=== PATIENT | female | born 1970 | race Caucasian/White ===

== ENCOUNTER 2017-01-14 15:46 | Inpatient (IN) | payer OTHER ==
[2017-01-14] MEDS ORDERED: SODIUM CHLORIDE 0.9% 500 ML IV STA ×2 (17:06→17:45)
[2017-01-14] MEDS ORDERED: HYDROmorphone 0.5 MG/0.5 ML SYRINGE IM STA (17:22)
[2017-01-14 17:27] LABS: Basophils # (A) 0.1 k/uL (0-0.2); Basophils % (A) 1 %; CH 28.9; CHCM 32.4; Eosinophils # (A) 0.2 k/uL (0-0.7); Eosinophils % (A) 1 %; HCT 45.7 % (34.0-46.0); HDW 2.42; HGB 14.9 gm/dL (11.4-16.0); Luc # (Auto) 0.14; Luc % (Auto) 1; Lymphocytes # (A) 1.7 k/uL (1.0-4.8); Lymphocytes % (A) 12 %; MCH 29.2 pg (25.0-35.0); MCHC 32.6 g/dL (31.0-37.0); MCV 89.5 fL (80.0-100.0); Mean Platelet Volume 8.1; Monocytes # (A) 0.6 k/uL (0-1.0); Monocytes % (A) 4 %; Neutrophils # (A) 11.7 k/uL (1.3-7.7); Neutrophils % (A) 81 %; RBC 5.11 m/uL (3.80-5.40); RDW 14.2 % (11.5-15.5); WBC 14.5 k/uL (3.8-10.6)
[2017-01-14] MEDS ORDERED: HYDROmorphone 0.5 MG/0.5 ML SYRINGE IVP STA (17:27)
[2017-01-14 17:35] LABS: INR 0.9 (<1.2); Partial Thromboplastin Time 27.7 sec (22.0-30.0); Prothrombin Time 9.5 sec (9.0-12.0)
[2017-01-14 17:43] LABS: Anion Gap 13 mmol/L; Blood Urea Nitrogen 6 mg/dL (7-17); Calcium 10.2 mg/dL (8.4-10.2); Carbon Dioxide 24 mmol/L (22-30); Chloride 102 mmol/L (98-107); Glucose 95 mg/dL (74-99); Non-African American GFR(MDRD) >60 (>60 ml/min/1.73 sqM); Potassium 3.8 mmol/L (3.5-5.1); Sodium 139 mmol/L (137-145)
[2017-01-14] MEDS ORDERED: SODIUM CHLORIDE 0.9% 1,000 ML IV ONE (17:45)
[2017-01-14] MEDS ORDERED: HYDROmorphone 1 MG/ML 1 ML SYRINGE IVP STA (18:03)
--- NOTE | 2017-01-14 18:16 | CT ---
EXAMINATION TYPE: CT abdomen pelvis wo con DATE OF EXAM: 01/14/2017 COMPARISON: Previous study dated 06/30/2013 HISTORY: Abdominal pain, possible ventral hernia CT DLP: 594.1 mGycm Automated exposure control for dose reduction was used. FINDINGS: There is mild, dependent atelectasis in the dependent portions of the lungs. There is no pl eural or pericardial fluid. The heart is not enlarged. Within the abdomen, the liver is enlarged measuring 20 cm. The spleen is normal. The gallbladder has been removed. Both adrenal glands are normal. Limited views of the pancreas are unremarkable. There is no evidence of hydronephrosis or nephrolithiasis. There is no significant retroperitoneal, iliac or inguinal adenopathy. The bladder is unremarkable. The uterus is normal. The ovaries are not identified with certainty. There is no significant diverticular change and there is no radiographic evidence of diverticulitis. The appendix is not visualized. Small bowel caliber is normal. There is no free fluid and no free air. There is a ventral hernia containing fat. The mouth measures 3.2 cm. There is mild facet arthropathy at the L5-S1 level. No bony destructive lesion is seen. IMPRESSION: 1. HEPATOMEGALY. 2. VENTRAL HERNIA CONTAINING FAT WITH A MOUTH MEASURING 3.2 CM.
[2017-01-14] MEDS ORDERED: NALOXONE 0.4 MG/ML 1 ML VIAL IV PRN (19:38)
--- NOTE | 2017-01-14 19:46 | XR ---
EXAMINATION TYPE: XR chest 2V DATE OF EXAM: 01/14/2017 HISTORY: fever. REFERENCE: Previous study dated 05/12/2013.. FINDINGS: There is an early infiltrate in the left lower lobe. The lungs are otherwise clear. Pleural space are clear. The heart is not enlarged. IMPRESSION: FINDINGS CONSISTENT WITH EARLY LEFT LOWER LOBE PNEUMONIA.
[2017-01-14] MEDS ORDERED: HYDROmorphone 1 MG/ML 1 ML SYRINGE IVP PRN (19:53)
[2017-01-14] MEDS ORDERED: HYDROcodone/APAP 10-325MG 1 EACH TAB PO PRN (19:54)
[2017-01-14] MEDS ORDERED: LOPERAMIDE 2 MG CAP PO PRN (19:54)
--- NOTE | 2017-01-14 19:55 | ED ---
Abdominal Pain HPI - General Chief Complaint: Abdominal Pain Stated Complaint: abdominal pain, poss sepsis, ventral hernia Time Seen by Provider: 01/14/17 16:30 Source: patient Mode of arrival: ambulatory Limitations: no limitations - History of Present Illness Initial Comments: 46-year-old female with past medical history of asthma, hypertension, osteoarthritis, Crohn's disease, appendectomy, bowel resection, cholecystectomy , hernia repair presented for evaluation of sudden onset abdominal pain yesterday. 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 She was pushing and exceptionally heavy object that was on the left and states that she felt a pull in her abdomen and a sudden onset of pain. She states that the pain and sensation is similar to previous ventral hernias which she has previously had prepared. She tried to deal with the pain overnight however it continued throughout the day and she presents for this abdominal pain. She also states that she has felt febrile during this time. Given her history of Crohn's disease she is used to having chronic abdominal pain but she states that this is different. - Related Data Home Medications Medication Instructions Recorded Confirmed ALPRAZolam [Xanax] 1 mg PO BID 10/15/15 01/14/17 HYDROcodone/APAP 10-325MG [[place] 1 tab PO BID PRN 10/15/15 01/14/17 10-325] Metoprolol Tartrate [Lopressor] 25 mg PO BID 10/15/15 01/14/17 Sertraline [Zoloft] 100 mg PO BID 10/15/15 01/14/17 cloNIDine HCL 0.3 mg PO HS 10/15/15 01/14/17 Adalimumab [Humira Pen] 40 mg SQ [id number] 01/14/17 01/14/17 Hydrochlorothiazide [Hydrodiuril] 25 mg PO DAILY 01/14/17 01/14/17 Loperamide HCl [Imodium A-D] 4 mg PO TID PRN 01/14/17 01/14/17 Loratadine [Claritin] 10 mg PO DAILY 01/14/17 01/14/17 Allergies Allergy/AdvReac Type Severity Reaction Status Date / Time iodine Allergy Anaphylaxis Verified 01/14/17 16:33 morphine Allergy Anaphylaxis Verified 01/14/17 16:33 ciprofloxacin [From Cipro] AdvReac Itching Verified 11/16/17 16:33 ciprofloxacin HCl AdvReac Itching Verified 01/14/17 16:33 [From Cipro] levofloxacin [From Levaquin] AdvReac Itching Verified 01/14/17 16:33 Review of Systems ROS Statement: Those systems with pertinent positive or pertinent negative responses have been documented in the HPI. ROS Other: All systems not noted in ROS Statement are negative. Constitutional: Reports: fever, chills. Denies: weight change, night sweats Eyes: Denies: eye pain, vision change ENT: Denies: ear pain, throat pain Respiratory: Denies: cough, dyspnea Cardiovascular: Denies: chest pain, palpitations Endocrine: Denies: fatigue, polydipsia, polyuria Gastrointestinal: Reports: abdominal pain, nausea. Denies: vomiting, diarrhea, constipation, hematemesis, melena, hematochezia Genitourinary: Denies: urgency, dysuria Musculoskeletal: Denies: back pain, arthralgia, myalgia Skin: Denies: rash, lesions Neurological: Denies: headache, weakness Psychiatric: Denies: anxiety, depression Hematological/Lymphatic: Denies: easy bleeding, easy bruising Past Medical History Past Medical History: Asthma, Hypertension, Osteoarthritis (OA) Additional Past Medical History / Comment(s): Chron's History of Any Multi-Drug Resistant Organisms: None Reported Past Surgical History: Appendectomy, Bowel Resection, Cholecystectomy, Hernia Repair, Orthopedic Surgery Additional Past Surgical History / Comment(s): Colonoscopy Past Anesthesia/Blood Transfusion Reactions: No Reported Reaction Past Psychological History: Depression Smoking Status: Current every day smoker Past Alcohol Use History: Rare Past Drug Use History: None Reported - Past Family History Father Family Medical History: Cancer Mother Family Medical History: Cancer General Exam Limitations: no limitations General appearance: alert, in distress, obese Head exam: Present: atraumatic, normocephalic, normal inspection Eye exam: Present: normal appearance, PERRL, EOMI. Absent: scleral icterus, conjunctival injection, periorbital swelling ENT exam: Present: normal exam, mucous membranes moist Neck exam: Present: normal inspection. Absent: tenderness, meningismus, lymphadenopathy Respiratory exam: Present: normal lung sounds bilaterally. Absent: respiratory distress, wheezes, rales, rhonchi, stridor Cardiovascular Exam: Present: normal rhythm, tachycardia GI/Abdominal exam: Present: soft, tenderness, hernia (Ventral supra-umbilical). Absent: distended, guarding, rebound, rigid Rectal exam: Present: deferred Extremities exam: Present: normal inspection, full ROM, normal capillary refill. Absent: tenderness, pedal edema, joint swelling, calf tenderness Back exam: Present: normal inspection Neurological exam: Present: alert, oriented X3, CN II-XII intact Psychiatric exam: Present: normal affect, normal mood Skin exam: Present: warm, dry, intact, normal color. Absent: rash Course Vital Signs 01/14/17 01/14/17 01/14/17 15:55 16:57 18:17 Temperature 98.4 F 101 F H Pulse Rate 126 H 118 H 109 H Respiratory 22 16 16 Rate Blood Pressure 147/84 162/118 143/83 O2 Sat by Pulse 98 97 95 Oximetry 01/14/17 20:28 Temperature 99.5 F Pulse Rate 111 H Respiratory 18 Rate Blood Pressure 146/90 O2 Sat by Pulse 95 Oximetry Medical Decision Making - Medical Decision Making 46-year-old female with past medical history as noted above presented for evaluation of sudden onset abdominal pain yesterday while moving a heavy object. She states the symptoms are similar to previous ventral hernias. On physical examination the patient is markedly tachycardic with heart rates in the 120s. She is also febrile and appears to be in distress holding her abdomen. On palpation abdomen is soft however there is a ventral defect superior to her umbilicus that is reducible. Abdomen is non-peritoneal without signs of guarding, rigidity, or rebound. The remainder of her exam is benign. Although the ventral hernia is reducible, there is concern for other etiology as she is markedly tachycardic and febrile which may indicate intra-abdominal perforation or other infectious etiology. We'll obtain CT abdomen and pelvis without contrast given the patient has an ALLERGY, labs, and provide pain control and IV fluids. Labs revealed a leukocytosis and lactic acidosis and IV fluids were increased. Patient was reevaluated and had no improvement in her pain and it was discovered that she has a pain contract with high tolerance for pain medications. We'll provide another dose of pain control at an increased dose.CT abdomen and pelvis showed hepatomegaly and a ventral hernia containing fat with a mild measuring 3.2 cm. Given that there is no significant intra- abdominal etiology we'll obtain a chest x-ray and urinalysis for further infectious etiology. Chest x-ray showed findings consistent with early left lower lobe pneumonia patient was started on antibiotics. Urinalysis shows no UTI. Discussed the pt with Dr. Geller who accepted the admission without further request. Admission order placed and bed request submitted. - Lab Data Result diagrams: 01/14/17 17:10 01/14/17 17:10 Lab Results 01/14/17 01/14/17 01/14/17 Range/Units 17:10 17:10 17:10 WBC 14.5 H (3.8-10.6) k/uL RBC 5.11 (3.80-5.40) m/uL Hgb 14.9 (11.4-16.0) gm/dL Hct 45.7 (34.0-46.0) % MCV 89.5 (80.0-100.0) fL MCH 29.2 (25.0-35.0) pg MCHC 32.6 (31.0-37.0) g/dL RDW 14.2 (11.5-15.5) % Plt Count 282 (150-450) k/uL Neutrophils % 81 % Lymphocytes % 12 % Monocytes % 4 % Eosinophils % 1 % Basophils % 1 % Neutrophils # 11.7 H (1.3-7.7) k/uL Lymphocytes # 1.7 (1.0-4.8) k/uL Monocytes # 0.6 (0-1.0) k/uL Eosinophils # 0.2 (0-0.7) k/uL Basophils # 0.1 (0-0.2) k/uL PT (9.0-12.0) sec INR (<1.2) APTT (22.0-30.0) sec Sodium 139 (137-145) mmol/L Potassium 3.8 (3.5-5.1) mmol/L Chloride 102 (98-107) mmol/L Carbon Dioxide 24 (22-30) mmol/L Anion Gap 13 mmol/L BUN 6 L (7-17) mg/dL Creatinine 0.60 (0.52-1.04) mg/dL Est GFR (MDRD) Af Amer >60 (>60 ml/min/1.73 sqM) Est GFR (MDRD) Non-Af >60 (>60 ml/min/1.73 sqM) Glucose 95 (74-99) mg/dL Lactic Ac Sepsis Rflx Plasma Lactic Acid [place] 2.9 H* (0.7-2.0) mmol/L Calcium 10.2 (8.4-10.2) mg/dL Urine Color Urine Appearance (Clear) Urine pH (5.0-8.0) Ur Specific [place] (1.001-1.035) Urine Protein (Negative) Urine Glucose (UA) (Negative) Urine Ketones (Negative) Urine Blood (Negative) Urine Nitrite (Negative) Urine Bilirubin (Negative) Urine Urobilinogen (<2.0) mg/dL Ur Leukocyte Esterase (Negative) 01/14/17 01/14/17 01/14/17 Range/Units 17:10 17:44 19:15 WBC (3.8-10.6) k/uL RBC (3.80-5.40) m/uL Hgb (11.4-16.0) gm/dL Hct (34.0-46.0) % MCV (80.0-100.0) fL MCH (25.0-35.0) pg MCHC (31.0-37.0) g/dL RDW (11.5-15.5) % Plt Count (150-450) k/uL Neutrophils % % Lymphocytes % % Monocytes % % Eosinophils % % Basophils % % Neutrophils # (1.3-7.7) k/uL Lymphocytes # (1.0-4.8) k/uL Monocytes # (0-1.0) k/uL Eosinophils # (0-0.7) k/uL Basophils # (0-0.2) k/uL PT 9.5 (9.0-12.0) sec INR 0.9 (<1.2) APTT 27.7 (22.0-30.0) sec Sodium (137-145) mmol/L Potassium (3.5-5.1) mmol/L Chloride (98-107) mmol/L Carbon Dioxide (22-30) mmol/L Anion Gap mmol/L BUN (7-17) mg/dL Creatinine (0.52-1.04) mg/dL Est GFR (MDRD) Af Amer (>60 ml/min/1.73 sqM) Est GFR (MDRD) Non-Af (>60 ml/min/1.73 sqM) Glucose (74-99) mg/dL Lactic Ac Sepsis Rflx Y Plasma Lactic Acid Julian (0.7-2.0) mmol/L Calcium (8.4-10.2) mg/dL Urine Color Light Yellow Urine Appearance Clear (Clear) Urine pH 7.0 (5.0-8.0) Ur Specific [place] 1.005 (1.001-1.035) Urine Protein Negative (Negative) Urine Glucose (UA) Negative (Negative) Urine Ketones Negative (Negative) Urine Blood Negative (Negative) Urine Nitrite Negative (Negative) Urine Bilirubin Negative (Negative) Urine Urobilinogen <2.0 (<2.0) mg/dL Ur Leukocyte Esterase Negative (Negative) 01/14/17 20:09 Sinus tachycardia with a ventricular rate of 114, CECIL 138, QRS 82, QT/QTC 338/ 465. Disposition Clinical Impression: Intractable abdominal pain, Ventral hernia, CAP (community acquired pneumonia) Disposition: ADMITTED IP TO THIS [facility] Time of Disposition: 21:47 Decision to Admit Reason: Admit from EC Decision Date: 01/14/17 Decision Time: 19:55
[2017-01-14 20:06] LABS: Appearance,Urine Clear (Clear); Bilirubin,Urine Negative (Negative); Glucose,Urine (UA) Negative (Negative); Ketones,Urine Negative (Negative); Leukocyte Esterase,Urine Negative (Negative); Nitrite,Urine Negative (Negative); Protein,Urine Negative (Negative); Specific Gravity,Urine 1.005 (1.001-1.035); UA Billing (MACRO vs. MICRO) CHEM; Urobilinogen,Urine <2.0 mg/dL (<2.0)
[2017-01-14] MEDS ORDERED: ACETAMINOPHEN TAB 325 MG TAB PO STA (20:15)
[2017-01-14] MEDS: SODIUM CHLORIDE 0.9% 1,000 ML IV SCH (20:23)
[2017-01-14] MEDS ORDERED: AZITHROMYCIN 500 MG TAB PO STA (20:39)
[2017-01-14] MEDS ORDERED: cefTRIAXone IN SWFI 1,000 MG/10 ML SYRINGE IVP STA (20:42)
[2017-01-14 21:04] VITALS: BMI 26.7
[2017-01-14] MEDS: ALPRAZolam 0.5 MG TAB PO SCH (21:37)
[2017-01-14] MEDS: SERTRALINE 100 MG TAB PO SCH (21:38)
[2017-01-14] MEDS: cloNIDine HCL 0.1 MG TAB PO SCH (21:38)
[2017-01-14] MEDS: METOPROLOL TARTRATE 25 MG TAB PO SCH (21:38)
[2017-01-14] MEDS: HYDROmorphone 2 MG/ML 1 ML SYRINGE IVP PRN (21:50)
[2017-01-15] MEDS: HYDROmorphone 2 MG/ML 1 ML SYRINGE IVP PRN ×6 (01:11→22:21)
[2017-01-15] MEDS: SODIUM CHLORIDE 0.9% 1,000 ML IV SCH ×3 (04:38→18:43)
[2017-01-15 07:02] LABS: Basophils # (A) 0.1 k/uL (0-0.2); Basophils % (A) 2 %; CH 29.1; CHCM 31.3; Eosinophils # (A) 0.2 k/uL (0-0.7); Eosinophils % (A) 3 %; HDW 2.38; HGB 12.9 gm/dL (11.4-16.0); Luc # (Auto) 0.15; Luc % (Auto) 2; Lymphocytes # (A) 2.3 k/uL (1.0-4.8); Lymphocytes % (A) 37 %; MCH 30.2 pg (25.0-35.0); MCHC 32.3 g/dL (31.0-37.0); MCV 93.5 fL (80.0-100.0); Mean Platelet Volume 7.9; Monocytes # (A) 0.4 k/uL (0-1.0); Monocytes % (A) 7 %; Neutrophils # (A) 2.9 k/uL (1.3-7.7); Neutrophils % (A) 49 %; RBC 4.27 m/uL (3.80-5.40); RDW 14.2 % (11.5-15.5); WBC (Perox) 6.38
[2017-01-15 07:21] LABS: Anion Gap 7 mmol/L; Blood Urea Nitrogen 7 mg/dL (7-17); Calcium 8.9 mg/dL (8.4-10.2); Carbon Dioxide 24 mmol/L (22-30); Chloride 110 mmol/L (98-107); Glucose 88 mg/dL (74-99); Non-African American GFR(MDRD) >60 (>60 ml/min/1.73 sqM); Potassium 4.2 mmol/L (3.5-5.1); Sodium 141 mmol/L (137-145)
[2017-01-15] MEDS: METOPROLOL TARTRATE 25 MG TAB PO SCH ×2 (10:13→22:23)
--- NOTE | 2017-01-15 10:33 | P.GSCN ---
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 Patient was pushing a heavy cart when she felt a significant pain in her abdomen. She developed a new mass. The patient was seen emergency room and underwent CAT scan is found have incarcerated incisional hernia with a piece of incarcerated omentum/fat. The patient states she has significant pain in the area. However the pain is better than yesterday. The patient is a previous history of bowel resection secondary to Crohn's disease. Past Medical History Past Medical History: Asthma, Hypertension, Osteoarthritis (OA) Additional Past Medical History / Comment(s): Chron's History of Any Multi-Drug Resistant Organisms: None Reported Past Surgical History: Appendectomy, Bowel Resection, Cholecystectomy, Hernia Repair, Orthopedic Surgery Additional Past Surgical History / Comment(s): Colonoscopy Past Anesthesia/Blood Transfusion Reactions: No Reported Reaction Past Psychological History: Depression Smoking Status: Current every day smoker Past Alcohol Use History: Rare Past Drug Use History: None Reported - Past Family History Father Family Medical History: Cancer Mother Family Medical History: Cancer Medications and Allergies Home Medications Medication Instructions Recorded Confirmed Type ALPRAZolam [Xanax] 1 mg PO BID 10/15/15 01/14/17 History HYDROcodone/APAP 10-325MG [[place] 1 tab PO BID PRN 10/15/15 01/14/17 History 10-325] Metoprolol Tartrate [Lopressor] 25 mg PO BID 10/15/15 01/14/17 History Sertraline [Zoloft] 100 mg PO BID 10/15/15 01/14/17 History cloNIDine HCL 0.3 mg PO HS 10/15/15 01/14/17 History Adalimumab [Humira Pen] 40 mg SQ [id number] 01/14/17 01/14/17 History Hydrochlorothiazide [Hydrodiuril] 25 mg PO DAILY 01/14/17 01/14/17 History Loperamide HCl [Imodium A-D] 4 mg PO TID PRN 01/14/17 01/14/17 History Loratadine [Claritin] 10 mg PO DAILY 01/14/17 01/14/17 History Allergies Allergy/AdvReac Type Severity Reaction Status Date / Time iodine Allergy Anaphylaxis Verified 01/14/17 16:33 morphine Allergy Anaphylaxis Verified 01/14/17 16:33 ciprofloxacin [From Cipro] AdvReac Itching Verified 01/14/17 16:33 ciprofloxacin HCl AdvReac Itching Verified 01/14/17 16:33 [From Cipro] levofloxacin [From Levaquin] AdvReac Itching Verified 01/14/17 16:33 Surgical - Exam Vital Signs Temp Pulse Resp BP Pulse Ox 98.4 F 126 H 22 147/84 98 01/14/17 15:55 01/14/17 15:55 01/14/17 15:55 01/14/17 15:55 01/14/17 15:55 - General well developed, no distress - Eyes PERRL - ENT normal pinna - Neck no masses - Respiratory normal expansion - Cardiovascular Rhythm: regular - Abdomen Abdomen soft. There is previous low midline laparotomy with evidence of infection there is a transverse right-sided incision extending towards the umbilicus. In the medial portion of the incision there is a small incarcerated hernia. The hernia is mildly tender. It appears to contain omentum. Abdomen: soft Results - Labs 01/15/17 06:36 01/15/17 06:36 Abnormal Lab Results - Last 24 Hours (Table) 01/14/17 01/14/17 01/14/17 Range/Units 17:10 17:10 17:10 WBC 14.5 H (3.8-10.6) k/uL Neutrophils # 11.7 H (1.3-7.7) k/uL Chloride (98-107) mmol/L BUN 6 L (7-17) mg/dL Plasma Lactic Acid [place] 2.9 H* (0.7-2.0) mmol/L 01/14/17 01/15/17 Range/Units 20:58 06:36 WBC (3.8-10.6) k/uL Neutrophils # (1.3-7.7) k/uL Chloride 110 H (98-107) mmol/L BUN (7-17) mg/dL Plasma Lactic Acid [place] 2.5 H* (0.7-2.0) mmol/L Diabetes panel 01/14/17 01/15/17 Range/Units 17:10 06:36 Sodium 139 141 (137-145) mmol/L Potassium 3.8 4.2 (3.5-5.1) mmol/L Chloride 102 110 H (98-107) mmol/L Carbon Dioxide 24 24 (22-30) mmol/L BUN 6 L 7 (7-17) mg/dL Creatinine 0.60 0.54 (0.52-1.04) mg/dL Glucose 95 88 (74-99) mg/dL Calcium 10.2 8.9 (8.4-10.2) mg/dL Calcium panel 01/14/17 01/15/17 Range/Units 17:10 06:36 Calcium 10.2 8.9 (8.4-10.2) mg/dL Pituitary panel 01/14/17 01/15/17 Range/Units 17:10 06:36 Sodium 139 141 (137-145) mmol/L Potassium 3.8 4.2 (3.5-5.1) mmol/L Chloride 102 110 H (98-107) mmol/L Carbon Dioxide 24 24 (22-30) mmol/L BUN 6 L 7 (7-17) mg/dL Creatinine 0.60 0.54 (0.52-1.04) mg/dL Glucose 95 88 (74-99) mg/dL Calcium 10.2 8.9 (8.4-10.2) mg/dL Adrenal panel 01/14/17 01/15/17 Range/Units 17:10 06:36 Sodium 139 141 (137-145) mmol/L Potassium 3.8 4.2 (3.5-5.1) mmol/L Chloride 102 110 H (98-107) mmol/L Carbon Dioxide 24 24 (22-30) mmol/L BUN 6 L 7 (7-17) mg/dL Creatinine 0.60 0.54 (0.52-1.04) mg/dL Glucose 95 88 (74-99) mg/dL Calcium 10.2 8.9 (8.4-10.2) mg/dL - Imaging CT scan - abdomen: report reviewed (3.2 cm ventral hernia) Assessment and Plan Assessment: Incarcerated incisional hernia. Patient will undergo repair.
[2017-01-15] MEDS: LORATADINE 10 MG TAB PO SCH (11:21)
[2017-01-15] MEDS: SERTRALINE 100 MG TAB PO SCH ×2 (11:21→22:23)
[2017-01-15] MEDS: HYDROCHLOROTHIAZIDE 25 MG TAB PO SCH (11:21)
[2017-01-15] MEDS: ALPRAZolam 0.5 MG TAB PO SCH ×2 (11:21→22:22)
[2017-01-15] MEDS ORDERED: IV FLUID CONTINUATION 1,000 ML IV ONE (14:28)
[2017-01-15] MEDS ORDERED: ceFAZolin IN SWFI 2 GM/20 ML SYRINGE IVP STA (14:33)
[2017-01-15] MEDS ORDERED: HEPARIN SODIUM,PORCINE 5,000 UNIT/ML 1 ML VIAL SQ STA (14:34)
--- NOTE | 2017-01-15 14:35 | P.HPIM ---
History of Present Illness H&P Date: 01/15/17 Chief Complaint: abdominal pain This is a 46-year-old female patient of Dr. Patel with a past medical history of asthma, hypertension, osteoarthritis, Crohn's disease status post 20+ inches of bowel resected [address] Whalen. 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 She came into [facility] emergency center for evaluation. She underwent a CAT scan that revealed hepatomegaly and ventral hernia containing fat measuring 3.2 cm. Patient also underwent a chest x-ray that did show early left lower lobe congestion for which she was given a dose of azithromycin and Rocephin. Patient was placed on the Medr floor and consult placed with Dr. Schultz who is planning on cholecystectomy as an add on to the OR schedule. Patient states her abdomen is sore and at the worst it's a #6-7 out of 10 and at the best #3 after pain medications. She states she's had Crohn's disease and underwent a bowel resection of 20+ inches with Dr. Whalen 2 years ago. She has been on Humira since May of this year and feels this is helping her. She chronically has diarrhea for short gut syndrome. Review of Systems All systems: negative Constitutional: Denies chills, Denies fever Eyes: denies blurred vision, denies pain Ears, nose, mouth and throat: Denies headache, Denies sore throat Cardiovascular: Denies chest pain, Denies shortness of breath Respiratory: Reports cough Gastrointestinal: Reports abdominal pain, Reports diarrhea, Denies nausea, Denies vomiting Genitourinary: Denies dysuria, Denies hematuria Musculoskeletal: Denies myalgias Integumentary: Denies pruritus, Denies rash Neurological: Denies numbness, Denies weakness Psychiatric: Denies anxiety, Denies depression Endocrine: Denies fatigue, Denies weight change Past Medical History Past Medical History: Asthma, Hypertension, Osteoarthritis (OA) Additional Past Medical History / Comment(s): Crohn's disease History of Any Multi-Drug Resistant Organisms: None Reported Past Surgical History: Appendectomy, Bowel Resection, Cholecystectomy, Hernia Repair, Orthopedic Surgery Additional Past Surgical History / Comment(s): Colonoscopy, right bunionectomy and hammertoe correction, kidney cyst removed in the renal aneurysm fixed at 17 years of age. Hernia repair including inguinal and umbilical Past Anesthesia/Blood Transfusion Reactions: No Reported Reaction Past Psychological History: Depression Smoking Status: Current every day smoker Past Alcohol Use History: Rare Additional Past Alcohol Use History / Comment(s): patient is a smoker one pack per day for 30 years. She denies any medical marijuana, marijuana, street drug use. She drinks alcohol rarely. Past Drug Use History: None Reported - Past Family History Father Family Medical History: Cancer Additional Family Medical History / Comment(s): Father is alive at age 70 with history of skin cancer, osteoarthritis and alcohol abuse. Mother Family Medical History: Cancer Additional Family Medical History / Comment(s): Mother is alive at age 67 with history of breast cancer, factor V, CVA. Brother(s) Additional Family Medical History / Comment(s): Patient has one brother with history of skin cancer, bipolar and alcohol abuse. Patient does not have any sisters. Patient had 3 children and one at 12 weeks of age. 2 daughters have no major medical problems. Medications and Allergies Home Medications Medication Instructions Recorded Confirmed Type ALPRAZolam [Xanax] 1 mg PO BID 10/15/15 01/14/17 History HYDROcodone/APAP 10-325MG [[place] 1 tab PO BID PRN 10/15/15 01/14/17 History 10-325] Metoprolol Tartrate [Lopressor] 25 mg PO BID 10/15/15 01/14/17 History Sertraline [Zoloft] 100 mg PO BID 10/15/15 01/14/17 History cloNIDine HCL 0.3 mg PO HS 10/15/15 01/14/17 History Adalimumab [Humira Pen] 40 mg SQ [id number] 01/14/17 01/14/17 History Hydrochlorothiazide [Hydrodiuril] 25 mg PO DAILY 01/14/17 01/14/17 History Loperamide HCl [Imodium A-D] 4 mg PO TID PRN 01/14/17 01/14/17 History Loratadine [Claritin] 10 mg PO DAILY 01/14/17 01/14/17 History Allergies Allergy/AdvReac Type Severity Reaction Status Date / Time iodine Allergy Anaphylaxis Verified 01/14/17 16:33 morphine Allergy Anaphylaxis Verified 01/14/17 16:33 ciprofloxacin [From Cipro] AdvReac Itching Verified 01/14/17 16:33 ciprofloxacin HCl AdvReac Itching Verified 01/14/17 16:33 [From Cipro] levofloxacin [From Levaquin] AdvReac Itching Verified 01/14/17 16:33 Physical Exam Vitals: Vital Signs Temp Pulse Pulse Resp BP BP BP 01/15/17 08:14 110/64 01/15/17 07:16 98.2 F 78 17 97/63 01/15/17 01:02 98.7 F 77 16 103/70 01/14/17 21:11 111 H 134/89 01/14/17 20:28 99.5 F 111 H 18 146/90 01/14/17 18:17 109 H 16 143/83 01/14/17 16:57 101 F H 118 H 16 162/118 01/14/17 15:55 98.4 F 126 H 22 147/84 Pulse Ox 01/15/17 08:14 01/15/17 07:16 92 L 01/15/17 01:02 95 01/14/17 21:11 01/14/17 20:28 95 01/14/17 18:17 95 01/14/17 16:57 97 01/14/17 15:55 98 Intake and Output 01/14/17 01/15/17 01/15/17 22:59 06:59 14:59 Intake Total 250 875 Balance 250 875 Intake: Intake, IV Titration 250 875 Amount Sodium Chloride 0.9% 1, 250 875 000 ml @ 125 mls/hr IV . Q8H [facility] Rx#:[id number] Other: Voiding Method Toilet Toilet # Voids 2 2 1 Weight 77.564 kg Gen: This is a obese 46-year-old female. She is resting bed appears to be comfortable. HEENT: Head is atraumatic, normocephalic. Pupils equal, round. Sclerae is anicteric. NECK: Supple. No JVD. No lymphadenopathy. No thyromegaly. LUNGS: Clear to auscultation. No wheezes or rhonchi. No intercostal retractions. HEART: Regular rate and rhythm. No murmur. ABDOMEN: Soft. Bowel sounds are present. No masses. Generalized tenderness.small hernia in the previous umbilical repair area. Patient has multiple scars on her abdomen from previous surgeries. EXTREMITIES: No pedal edema. No calf tenderness. NEUROLOGICAL: Patient is awake, alert and oriented x3. Cranial nerves 2 through 12 are grossly intact. Results CBC & Chem 7: 01/15/17 06:36 01/15/17 06:36 Labs: Abnormal Lab Results - Last 24 Hours (Table) 01/14/17 01/14/17 01/14/17 Range/Units 17:10 17:10 17:10 WBC 14.5 H (3.8-10.6) k/uL Neutrophils # 11.7 H (1.3-7.7) k/uL Chloride (98-107) mmol/L BUN 6 L (7-17) mg/dL Plasma Lactic Acid Julian 2.9 H* (0.7-2.0) mmol/L 01/14/17 01/15/17 Range/Units 20:58 06:36 WBC (3.8-10.6) k/uL Neutrophils # (1.3-7.7) k/uL Chloride 110 H (98-107) mmol/L BUN (7-17) mg/dL Plasma Lactic Acid Julian 2.5 H* (0.7-2.0) mmol/L Thrombosis Risk Factor Assmnt - DVT/VTE Prophylaxis DVT/VTE Prophylaxis: Pharmacologic Prophylaxis ordered - Choose All That Apply Each Factor Represents 1 point: Age 41-60 years, Hx of IBD, Obesity (BMI >25) Other Risk Factors: No Other congenital or acquired thrombophilia - If yes, enter type in comment: No Thrombosis Risk Factor Assessment Total Risk Factor Score: 3 Thrombosis Risk Factor Assessment Level: Moderate Risk Assessment and Plan Plan: 1. Incarcerated incisional hernia. Patient has been seen by Dr. Schultz with plan for hernia repair. Continue current pain management. 2. Early left lower lobe pneumonia. Patient will be continued on azithromycin and ceftriaxone. 3. History of Crohn's disease currently on Humira every 2 weeks and her last dose was last Wednesday. She is status post bowel resection 2 years ago. 4. Chronic diarrhea from short gut syndrome from previous bowel resection. On Imodium. 5. Asthma, mild intermittent, currently stable without exacerbation. 6. Hypertension. Continue Lopressor 25 mg twice daily. 7. Osteoarthritis generalized, stable. 8. Tobacco use and dependence. Nicotine patch. 9. DVT prophylaxis. Heparin subcu. 10. Gastric intestinal prophylaxis. Protonix. Patient will be admitted to the hospital for a minimum of 2 night stay. Discharge plan: return home in the next 24-48 hours depending on surgery schedule Impression and plan of care have been directed as dictated by the signing physician. Keshia Emerson nurse practitioner acting as scribe for signing physician.
[2017-01-15] MEDS: ONDANSETRON 4 MG/2 ML VIAL IVP PRN (14:37)
[2017-01-15] MEDS: cefTRIAXone IN SWFI 1,000 MG/10 ML SYRINGE IVP SCH (22:22)
[2017-01-15] MEDS: AZITHROMYCIN 250 MG TAB PO SCH (22:22)
[2017-01-15] MEDS: cloNIDine HCL 0.1 MG TAB PO SCH (22:23)
[2017-01-16] MEDS: NICOTINE 21MG/24HR PATCH TRANSDERM SCH ×2 (00:57→09:18)
[2017-01-16] MEDS: HYDROmorphone 2 MG/ML 1 ML SYRINGE IVP PRN ×4 (08:28→20:21)
[2017-01-16] MEDS: METOPROLOL TARTRATE 25 MG TAB PO SCH ×2 (09:18→20:21)
[2017-01-16] MEDS: ALPRAZolam 0.5 MG TAB PO SCH ×2 (09:18→20:19)
[2017-01-16] MEDS: SERTRALINE 100 MG TAB PO SCH ×2 (09:19→20:21)
[2017-01-16] MEDS: HYDROCHLOROTHIAZIDE 25 MG TAB PO SCH (09:19)
[2017-01-16] MEDS: LORATADINE 10 MG TAB PO SCH (09:20)
--- NOTE | 2017-01-16 12:24 | P.PN ---
Subjective Progress Note Date: 01/16/17 This is a 46-year-old female patient of Dr. Patel with a past medical history of asthma, hypertension, osteoarthritis, Crohn's disease status post 20+ inches of bowel resected [address] Whalen. 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 She came into [facility] emergency center for evaluation. She underwent a CAT scan that revealed hepatomegaly and ventral hernia containing fat measuring 3.2 cm. Patient also underwent a chest x-ray that did show early left lower lobe congestion for which she was given a dose of azithromycin and Rocephin. Patient was placed on the MedSur floor and consult placed with Dr. Schultz who is planning on cholecystectomy as an add on to the OR schedule. Patient states her abdomen is sore and at the worst it's a #6-7 out of 10 and at the best #3 after pain medications. She states she's had Crohn's disease and underwent a bowel resection of 20+ inches with Dr. Whalen 2 years ago. She has been on Humira since May of this year and feels this is helping her. She chronically has diarrhea for short gut syndrome. 01/16: Patient was taken down to the OR however procedure was canceled for an emergency and she is now rescheduled for Wednesday. She has been placed on a regular diet. Objective - Vital Signs Vital signs: Vital Signs Temp 97.7 F 01/16/17 04:43 Pulse 66 01/16/17 04:43 Resp 16 01/16/17 04:43 BP 107/62 01/16/17 04:43 Pulse Ox 91 L 01/16/17 04:43 Intake & Output 01/15/17 01/16/17 01/16/17 18:59 06:59 18:59 Intake Total 1000 3060 Balance 1000 3060 Weight 77.564 kg Intake: IV 1000 2000 Sodium Chloride 0.9% 1, 1000 2000 000 ml @ 125 mls/hr IV . Q8H [facility] Rx#:[id number] Intake, IV Titration 100 Amount cefTRIAXone 1,000 mg In 100 Sodium Chloride 0.9% 50 ml @ 100 mls/hr IVPB Q24HR [facility] Rx#:[id number] Oral 960 Other: Voiding Method Toilet Toilet # Voids 2 2 - Exam Gen: This is a obese 46-year-old female. She is resting bed appears to be comfortable. HEENT: Head is atraumatic, normocephalic. Pupils equal, round. Sclerae is anicteric. NECK: Supple. No JVD. No lymphadenopathy. No thyromegaly. LUNGS: Clear to auscultation. No wheezes or rhonchi. No intercostal retractions. HEART: Regular rate and rhythm. No murmur. ABDOMEN: Soft. Bowel sounds are present. No masses. Generalized tenderness.small hernia in the previous umbilical repair area. Patient has multiple scars on her abdomen from previous surgeries. EXTREMITIES: No pedal edema. No calf tenderness. NEUROLOGICAL: Patient is awake, alert and oriented x3. Cranial nerves 2 through 12 are grossly intact. - Labs CBC & Chem 7: 01/15/17 06:36 01/15/17 06:36 Labs: Microbiology - Last 24 Hours (Table) 01/14/17 17:10 Blood Culture - Preliminary Blood No Growth after 24 hours Assessment and Plan Plan: 1. Incarcerated incisional hernia. Patient has been seen by Dr. Schultz with plan for hernia repair. Continue current pain management. 2. Early left lower lobe pneumonia. Patient will be continued on azithromycin and ceftriaxone. 3. History of Crohn's disease currently on Humira every 2 weeks and her last dose was last Wednesday. She is status post bowel resection 2 years ago. 4. Chronic diarrhea from short gut syndrome from previous bowel resection. On Imodium. 5. Asthma, mild intermittent, currently stable without exacerbation. 6. Hypertension. Continue Lopressor 25 mg twice daily. 7. Osteoarthritis generalized, stable. 8. Tobacco use and dependence. Nicotine patch. 9. DVT prophylaxis. SCDs 10. Gastric intestinal prophylaxis. Protonix. Discharge plan: return home in the next 24-48 hours depending on surgery schedule Impression and plan of care have been directed as dictated by the signing physician. Keshia Emerson nurse practitioner acting as scribe for signing physician.
--- NOTE | 2017-01-16 12:50 | P.PN ---
Subjective Progress Note Date: 01/16/17 Principal diagnosis: Incarcerated ventral hernia Patient doing well. She complains of a mild amount of pain around her hernia. She is tolerating her diet. No nausea vomiting passing gas and bowel movements Objective - Vital Signs Vital signs: Vital Signs Temp 99.1 F 01/16/17 07:00 Pulse 86 01/16/17 07:00 Resp 18 01/16/17 07:00 BP 119/74 01/16/17 07:00 Pulse Ox 97 01/16/17 07:00 Intake & Output 01/15/17 01/16/17 01/16/17 18:59 06:59 18:59 Intake Total 1000 3060 Balance 1000 3060 Weight 77.564 kg Intake: IV 1000 2000 Sodium Chloride 0.9% 1, 1000 2000 000 ml @ 125 mls/hr IV . Q8H [facility] Rx#:[id number] Intake, IV Titration 100 Amount cefTRIAXone 1,000 mg In 100 Sodium Chloride 0.9% 50 ml @ 100 mls/hr IVPB Q24HR [facility] Rx#:[id number] Oral 960 Other: Voiding Method Toilet Toilet # Voids 2 2 - Constitutional General appearance: Present: average body habitus, cooperative - EENT Eyes: Present: PERRLA - Respiratory Details: Nonlabored breathing - Cardiovascular Rhythm: regular - Gastrointestinal Gastrointestinal Comment(s): Abdomen soft nondistended incarcerated hernia over her transverse incision. Mild tenderness to palpation - Psychiatric Psychiatric: Present: A&O x's 3 - Labs CBC & Chem 7: 01/15/17 06:36 01/15/17 06:36 Labs: Microbiology - Last 24 Hours (Table) 01/14/17 17:10 Blood Culture - Preliminary Blood No Growth after 24 hours Assessment and Plan Assessment: Incarcerated ventral hernia fat-containing Plan: Plan for hernia repair on Wednesday. Patient continued diet until Wednesday night.
[2017-01-16] MEDS: SODIUM CHLORIDE 0.9% 1,000 ML IV SCH ×2 (17:23→18:07)
[2017-01-16] MEDS: cefTRIAXone IN SWFI 1,000 MG/10 ML SYRINGE IVP SCH (20:19)
[2017-01-16] MEDS: AZITHROMYCIN 250 MG TAB PO SCH (20:19)
[2017-01-16] MEDS: cloNIDine HCL 0.1 MG TAB PO SCH (20:20)
[2017-01-17] MEDS: HYDROmorphone 2 MG/ML 1 ML SYRINGE IVP PRN ×6 (00:02→21:19)
[2017-01-17] MEDS: NICOTINE 21MG/24HR PATCH TRANSDERM SCH (09:11)
[2017-01-17] MEDS: METOPROLOL TARTRATE 25 MG TAB PO SCH ×2 (09:11→21:18)
[2017-01-17] MEDS: HYDROCHLOROTHIAZIDE 25 MG TAB PO SCH (09:12)
[2017-01-17] MEDS: SERTRALINE 100 MG TAB PO SCH ×2 (09:12→21:18)
[2017-01-17] MEDS: LORATADINE 10 MG TAB PO SCH (09:12)
[2017-01-17] MEDS: ALPRAZolam 0.5 MG TAB PO SCH ×2 (09:12→21:18)
[2017-01-17] MEDS: SODIUM CHLORIDE 0.9% 1,000 ML IV SCH ×3 (10:26→20:39)
--- NOTE | 2017-01-17 11:26 | P.PN ---
Subjective Progress Note Date: 01/17/17 Principal diagnosis: Incarcerated ventral hernia Patient is tolerating her diet she has no complaints. Pain is still present in her incarcerated hernia no nausea vomiting she is passing gas and bowel movements Objective - Vital Signs Vital signs: Vital Signs Temp 98.5 F 01/17/17 07:00 Pulse 76 01/17/17 07:00 Resp 18 01/17/17 07:00 BP 137/82 01/17/17 07:00 Pulse Ox 93 L 01/17/17 07:00 Intake & Output 01/16/17 01/17/17 01/17/17 18:59 06:59 18:59 Intake Total 1000 3240 Balance 1000 3240 Intake: IV 1000 1200 Sodium Chloride 0.9% 1, 1000 1200 000 ml @ 125 mls/hr IV . Q8H [facility] Rx#:[id number] Oral 2040 Other: # Voids 1 - Constitutional General appearance: Present: average body habitus, cooperative - EENT Eyes: Present: PERRLA - Respiratory Details: Nonlabored - Cardiovascular Rhythm: regular - Gastrointestinal Gastrointestinal Comment(s): Soft nondistended mild tenderness palpation over incarcerated hernia - Psychiatric Psychiatric: Present: A&O x's 3 - Labs CBC & Chem 7: 01/15/17 06:36 01/15/17 06:36 Labs: Microbiology - Last 24 Hours (Table) 01/14/17 17:10 Blood Culture - Preliminary Blood No Growth after 48 hours Assessment and Plan Assessment: Incarcerated ventral hernia fat-containing Plan: Plan for hernia repair on Wednesday. Patient continued diet until Wednesday night.
--- NOTE | 2017-01-17 12:13 | P.PN ---
Subjective Progress Note Date: 01/17/17 This is a 46-year-old female patient of Dr. Patel with a past medical history of asthma, hypertension, osteoarthritis, Crohn's disease status post 20+ inches of bowel resected [address] Whalen. 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 She came into [facility] emergency center for evaluation. She underwent a CAT scan that revealed hepatomegaly and ventral hernia containing fat measuring 3.2 cm. Patient also underwent a chest x-ray that did show early left lower lobe congestion for which she was given a dose of azithromycin and Rocephin. Patient was placed on the MedSur floor and consult placed with Dr. Schultz who is planning on cholecystectomy as an add on to the OR schedule. Patient states her abdomen is sore and at the worst it's a #6-7 out of 10 and at the best #3 after pain medications. She states she's had Crohn's disease and underwent a bowel resection of 20+ inches with Dr. Whalen 2 years ago. She has been on Humira since May of this year and feels this is helping her. She chronically has diarrhea for short gut syndrome. 01/16: Patient was taken down to the OR however procedure was canceled for an emergency and she is now rescheduled for Wednesday. She has been placed on a regular diet. 01/17: Overall, patient's pain has been controlled with current medications. She is concerned that she has a pain contract with Dr. Case and up appointment on Wednesday. Recommend that patient contact Dr. Case and notify the office and reschedule appointment. Patient is tolerating diet. Plan is for nothing 8 after midnight and or tomorrow. Objective - Vital Signs Vital signs: Vital Signs Temp 98.5 F 01/17/17 07:00 Pulse 76 01/17/17 07:00 Resp 18 01/17/17 07:00 BP 137/82 01/17/17 07:00 Pulse Ox 93 L 01/17/17 07:00 Intake & Output 01/16/17 01/17/17 01/17/17 18:59 06:59 18:59 Intake Total 1000 3240 Balance 1000 3240 Intake: IV 1000 1200 Sodium Chloride 0.9% 1, 1000 1200 000 ml @ 125 mls/hr IV . Q8H [facility] Rx#:[id number] Oral 2039 Other: # Voids 1 - Exam Gen: This is a obese 46-year-old female. She is resting bed appears to be comfortable. HEENT: Head is atraumatic, normocephalic. Pupils equal, round. Sclerae is anicteric. NECK: Supple. No JVD. No lymphadenopathy. No thyromegaly. LUNGS: Clear to auscultation. No wheezes or rhonchi. No intercostal retractions. HEART: Regular rate and rhythm. No murmur. ABDOMEN: Soft. Bowel sounds are present. No masses. Generalized tenderness.small hernia in the previous umbilical repair area. Patient has multiple scars on her abdomen from previous surgeries. EXTREMITIES: No pedal edema. No calf tenderness. NEUROLOGICAL: Patient is awake, alert and oriented x3. Cranial nerves 2 through 12 are grossly intact. - Labs CBC & Chem 7: 01/15/17 06:36 01/15/17 06:36 Labs: Microbiology - Last 24 Hours (Table) 01/14/17 17:10 Blood Culture - Preliminary Blood No Growth after 48 hours Assessment and Plan Plan: 1. Incarcerated incisional hernia. Patient has been seen by Dr. Schultz with plan for hernia repair. Continue current pain management. 2. Early left lower lobe pneumonia. Patient will be continued on azithromycin and ceftriaxone. 3. History of Crohn's disease currently on Humira every 2 weeks and her last dose was last Wednesday. She is status post bowel resection 2 years ago. 4. Chronic diarrhea from short gut syndrome from previous bowel resection. On Imodium. 5. Asthma, mild intermittent, currently stable without exacerbation. 6. Hypertension. Continue Lopressor 25 mg twice daily. 7. Osteoarthritis generalized, stable. 8. Tobacco use and dependence. Nicotine patch. 9. DVT prophylaxis. SCDs 10. Gastric intestinal prophylaxis. Protonix. Discharge plan: return home in the next 24-48 hours depending on surgery schedule Impression and plan of care have been directed as dictated by the signing physician. Keshia Emerson nurse practitioner acting as scribe for signing physician.
[2017-01-17] MEDS: cloNIDine HCL 0.1 MG TAB PO SCH (21:18)
[2017-01-17] MEDS: AZITHROMYCIN 250 MG TAB PO SCH (21:19)
[2017-01-17] MEDS: cefTRIAXone IN SWFI 1,000 MG/10 ML SYRINGE IVP SCH (21:19)
[2017-01-17] MEDS: KETOROLAC 30 MG/ML 1 ML VIAL IVP PRN (22:58)
[2017-01-18] MEDS: HYDROmorphone 2 MG/ML 1 ML SYRINGE IVP PRN ×4 (01:15→19:56)
[2017-01-18] MEDS: SODIUM CHLORIDE 0.9% 1,000 ML IV SCH ×3 (01:16→21:42)
[2017-01-18] MEDS: NICOTINE 21MG/24HR PATCH TRANSDERM SCH (09:55)
[2017-01-18] MEDS: METOPROLOL TARTRATE 25 MG TAB PO SCH ×2 (09:55→21:45)
[2017-01-18] MEDS: ALPRAZolam 0.5 MG TAB PO SCH ×2 (11:33→21:43)
[2017-01-18] MEDS: HYDROCHLOROTHIAZIDE 25 MG TAB PO SCH (11:33)
[2017-01-18] MEDS: SERTRALINE 100 MG TAB PO SCH ×2 (11:34→21:45)
[2017-01-18] MEDS: LORATADINE 10 MG TAB PO SCH (11:34)
[2017-01-18] MEDS ORDERED: IV FLUID CONTINUATION 1,000 ML IV ONE ×2 (12:16)
[2017-01-18] MEDS: ONDANSETRON 4 MG/2 ML VIAL IVP PRN (12:26)
[2017-01-18] MEDS ORDERED: DEXAMETHASONE SOD PHOSPHATE 10 MG/ML 1 ML VIAL IV ONE (12:27)
[2017-01-18] MEDS ORDERED: HEPARIN SODIUM,PORCINE 5,000 UNIT/ML 1 ML VIAL SQ ONE (12:28)
[2017-01-18] MEDS ORDERED: LIDOCAINE 1% INJ 10MG/ML (20 ML MDV) ONE (12:58)
[2017-01-18] MEDS ORDERED: PROPOFOL 10 MG/ML 20 ML VIAL IV ONE (12:58)
[2017-01-18] MEDS ORDERED: GLYCOPYRROLATE 0.2 MG/ML 2 ML VIAL ONE (12:58)
[2017-01-18] MEDS ORDERED: ROCURONIUM BROMIDE 10 MG/ML 10 ML VIAL IV ONE (12:58)
[2017-01-18] MEDS ORDERED: HYDROmorphone (PF) 1 MG/ML ONE (12:58)
[2017-01-18] MEDS ORDERED: MIDAZOLAM 2 MG/2 ML VIAL ONE (12:58)
[2017-01-18] MEDS ORDERED: fentaNYL (PF) 50 MCG/ML 2 ML AMP ONE (12:58)
[2017-01-18] MEDS ORDERED: ceFAZolin 1,000 MG VIAL ONE (12:58)
[2017-01-18] MEDS ORDERED: SUCCINYLCHOLINE CHLORIDE 100 MG/5 ML SYR IV ONE (12:58)
[2017-01-18] MEDS ORDERED: NEOSTIGMINE 1 MG/ML 10 ML VIAL ONE (12:58)
--- NOTE | 2017-01-18 13:17 | P.PN ---
Subjective Progress Note Date: 01/18/17 This is a 46-year-old female patient of Dr. Patel with a past medical history of asthma, hypertension, osteoarthritis, Crohn's disease status post 20+ inches of bowel resected [address] Whalen. 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 She came into [facility] emergency center for evaluation. She underwent a CAT scan that revealed hepatomegaly and ventral hernia containing fat measuring 3.2 cm. Patient also underwent a chest x-ray that did show early left lower lobe congestion for which she was given a dose of azithromycin and Rocephin. Patient was placed on the MedSur floor and consult placed with Dr. Schultz who is planning on cholecystectomy as an add on to the OR schedule. Patient states her abdomen is sore and at the worst it's a #6-7 out of 10 and at the best #3 after pain medications. She states she's had Crohn's disease and underwent a bowel resection of 20+ inches with Dr. Whalen 2 years ago. She has been on Humira since May of this year and feels this is helping her. She chronically has diarrhea for short gut syndrome. 01/16: Patient was taken down to the OR however procedure was canceled for an emergency and she is now rescheduled for Wednesday. She has been placed on a regular diet. 01/17: Overall, patient's pain has been controlled with current medications. She is concerned that she has a pain contract with Dr. Case and up appointment on Wednesday. Recommend that patient contact Dr. Case and notify the office and reschedule appointment. Patient is tolerating diet. Plan is for nothing 8 after midnight and or tomorrow. 01/18: Patient is gone for surgery. Objective - Vital Signs Vital signs: Vital Signs Temp 99.0 F 01/18/17 12:25 Pulse 60 01/18/17 12:25 Resp 18 01/18/17 12:25 BP 139/69 01/18/17 12:25 Pulse Ox 98 01/18/17 12:25 Intake & Output 01/17/17 01/18/17 01/18/17 18:59 06:59 18:59 Intake Total 780 0 Balance 780 0 Intake: IV 780 0 Sodium Chloride 0.9% 1, 780 000 ml @ 125 mls/hr IV . Q8H [facility] Rx#:[id number] Other: # Voids 2 2 - Exam Gen: This is a obese 46-year-old female. She is resting bed appears to be comfortable. HEENT: Head is atraumatic, normocephalic. Pupils equal, round. Sclerae is anicteric. NECK: Supple. No JVD. No lymphadenopathy. No thyromegaly. LUNGS: Clear to auscultation. No wheezes or rhonchi. No intercostal retractions. HEART: Regular rate and rhythm. No murmur. ABDOMEN: Soft. Bowel sounds are present. No masses. Generalized tenderness.small hernia in the previous umbilical repair area. Patient has multiple scars on her abdomen from previous surgeries. EXTREMITIES: No pedal edema. No calf tenderness. NEUROLOGICAL: Patient is awake, alert and oriented x3. Cranial nerves 2 through 12 are grossly intact. - Labs CBC & Chem 7: 01/15/17 06:36 01/15/17 06:36 Labs: Microbiology - Last 24 Hours (Table) 01/14/17 17:10 Blood Culture - Preliminary Blood No Growth after 72 hours Assessment and Plan Plan: 1. Incarcerated incisional hernia. Patient has been seen by Dr. Schultz with plan for hernia repair. Continue current pain management. 2. Early left lower lobe pneumonia. Patient will be continued on azithromycin and ceftriaxone. 3. History of Crohn's disease currently on Humira every 2 weeks and her last dose was last Wednesday. She is status post bowel resection 2 years ago. 4. Chronic diarrhea from short gut syndrome from previous bowel resection. On Imodium. 5. Asthma, mild intermittent, currently stable without exacerbation. 6. Hypertension. Continue Lopressor 25 mg twice daily. 7. Osteoarthritis generalized, stable. 8. Tobacco use and dependence. Nicotine patch. 9. DVT prophylaxis. SCDs 10. Gastric intestinal prophylaxis. Protonix. Discharge plan: return home in the next 24-48 hours depending on surgery schedule Impression and plan of care have been directed as dictated by the signing physician. Keshia Emerson nurse practitioner acting as scribe for signing physician.
[2017-01-18] MEDS ORDERED: NALOXONE 0.4 MG/ML 1 ML VIAL IV PRN (13:49)
[2017-01-18] MEDS ORDERED: ONDANSETRON 4 MG/2 ML VIAL IVP PRN (13:49)
[2017-01-18] MEDS ORDERED: HYDROcodone/APAP 5-325MG 1 EACH TAB PO PRN (13:49)
[2017-01-18] MEDS ORDERED: LACTATED RINGERS 1,000 ML IV ONE (13:49)
[2017-01-18] MEDS ORDERED: ACETAMINOPHEN TAB 325 MG TAB PO PRN (13:49)
[2017-01-18] MEDS ORDERED: HYDROmorphone 0.5 MG/0.5 ML SYRINGE IVP PRN (13:49)
--- NOTE | 2017-01-18 13:49 | P.OP ---
Date of Procedure: 01/18/17 Preoperative Diagnosis: Incarcerated incisional hernia Postoperative Diagnosis: Incarcerated incisional hernia Procedure(s) Performed: Laparoscopic robotic-assisted repair of incarcerated incisional hernia Anesthesia: ELLI Surgeon: Artemio Schultz Estimated Blood Loss (ml): 10 Pathology: other (Incarcerated omentum) Condition: stable Disposition: PACU Description of Procedure: The patient was placed on the operative table in the supine position. She received general anesthesia. Her abdomen was prepped in sterile fashion. Patient had a transverse scar above her umbilicus. The hernia was located in the medial portion of her scar. Using a 15 blade the skin was incised using blunt and sharp dissection with cautery the hernia sac was encountered. Hernia sac was opened and there was incarcerated omentum within the hernia sac. This was transected and sent to pathology. The fascial defect was then closed with [id number] Ethibond suture. And then using a 6 x 6" piece of Prolene mesh the repair was buttressed and the mesh was secured with secure strap tacker. A NELDA drains placed through separate stab incision in the Mike's fascia was closed with 0 Vicryl suture. Skin was closed arian. The patient was sent to recovery in stable condition.
[2017-01-18] MEDS: HYDROmorphone 1 MG/ML 1 ML SYRINGE IVP ONE ×2 (13:57→14:02)
[2017-01-18] MEDS: diphenhydrAMINE 50 MG/ML 1 ML VIAL IVP ONE ×2 (14:07→14:20)
[2017-01-18 14:19] VITALS: RESP 16
[2017-01-18] MEDS: KETOROLAC 30 MG/ML 1 ML VIAL IVP PRN ×2 (17:00→22:31)
[2017-01-18] MEDS: cefTRIAXone IN SWFI 1,000 MG/10 ML SYRINGE IVP SCH (21:43)
[2017-01-18] MEDS: AZITHROMYCIN 250 MG TAB PO SCH (21:43)
[2017-01-18] MEDS: cloNIDine HCL 0.1 MG TAB PO SCH (21:44)
[2017-01-18] MEDS: DOCUSATE 100 MG CAP PO SCH (21:45)
[2017-01-19] MEDS: HYDROmorphone 2 MG/ML 1 ML SYRINGE IVP PRN ×2 (00:16→07:15)
[2017-01-19] MEDS: KETOROLAC 30 MG/ML 1 ML VIAL IVP PRN (05:05)
[2017-01-19] MEDS: SODIUM CHLORIDE 0.9% 1,000 ML IV SCH ×2 (05:22→14:29)
[2017-01-19 07:26] VITALS: BP 128/79; PULSE 64; TEMP 97.9
[2017-01-19] MEDS ORDERED: ENOXAPARIN 40 MG/0.4 ML SYRINGE SQ SCH (09:00)
[2017-01-19] MEDS: NICOTINE 21MG/24HR PATCH TRANSDERM SCH (10:35)
[2017-01-19] MEDS: DOCUSATE 100 MG CAP PO SCH (10:36)
[2017-01-19] MEDS: HYDROCHLOROTHIAZIDE 25 MG TAB PO SCH (10:37)
[2017-01-19] MEDS: SERTRALINE 100 MG TAB PO SCH (10:38)
[2017-01-19] MEDS: METOPROLOL TARTRATE 25 MG TAB PO SCH (10:38)
[2017-01-19] MEDS: LORATADINE 10 MG TAB PO SCH (10:38)
[2017-01-19] MEDS: ALPRAZolam 0.5 MG TAB PO SCH (10:42)
--- NOTE | 2017-01-19 12:16 | P.DS ---
Providers Date of admission: 01/14/17 19:54 Expected date of discharge: 01/19/17 Attending physician: Mike Geller Consults: 01/14/17 19:53 Consult Physician Routine Consulting Provider: Artemio Schultz Consult Reason/Comments: Abdominal pain Do you want consulting provider notified?: Yes Primary care physician: Brayan Mary Rutan Hospital Course: This is a 46-year-old female patient of Dr. Patel with a past medical history of asthma, hypertension, osteoarthritis, Crohn's disease status post 20+ inches of bowel resected [address] Whalen. 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 She came into [facility] emergency center for evaluation. She underwent a CAT scan that revealed hepatomegaly and ventral hernia containing fat measuring 3.2 cm. Patient also underwent a chest x-ray that did show early left lower lobe congestion for which she was given a dose of azithromycin and Rocephin. Patient was placed on the MedSur floor and consult placed with Dr. Schultz who is planning on cholecystectomy as an add on to the OR schedule. Patient states her abdomen is sore and at the worst it's a #6-7 out of 10 and at the best #3 after pain medications. She states she's had Crohn's disease and underwent a bowel resection of 20+ inches with Dr. Whalen 2 years ago. She has been on Humira since May of this year and feels this is helping her. She chronically has diarrhea for short gut syndrome. 01/16: Patient was taken down to the OR however procedure was canceled for an emergency and she is now rescheduled for Wednesday. She has been placed on a regular diet. 01/17: Overall, patient's pain has been controlled with current medications. She is concerned that she has a pain contract with Dr. Case and up appointment on Wednesday. Recommend that patient contact Dr. Case and notify the office and reschedule appointment. Patient is tolerating diet. Plan is for nothing 8 after midnight and or tomorrow. 01/18: Patient is gone for surgery. 01/19: Patient underwent laparoscopic robotic-assisted repair of incarcerated incisional hernia with Dr. Schultz yesterday. She has had no postop complications. She tolerated a regular diet this morning for breakfast without nausea or vomiting. She is having more pain than her chronic pain level. She states she spoke with Dr. Case's office and she may have increased [place] for the next 2 weeks and will follow-up with Dr. Case for further prescriptions. Patient will be provided with a note for off work until seen by Dr. Rubens clark. Patient will be discharged home today in stable condition once cleared by Dr. Schultz. Patient has been instructed to hold Humira until Dr. Schultz has cleared her to resume. Discharge diagnoses: 1. Incarcerated incisional hernia. 2. Early left lower lobe pneumonia. 3. History of Crohn's disease currently on Humira 4. Chronic diarrhea from short gut syndrome from previous bowel resection. 5. Asthma, mild intermittent, currently stable without exacerbation. 6. Hypertension. 7. Osteoarthritis generalized, stable. 8. Tobacco use and dependence. Discharge plan: return home Impression and plan of care have been directed as dictated by the signing physician. Keshia Emerson nurse practitioner acting as scribe for signing physician. Patient Condition at Discharge: Good Plan - Discharge Summary Discharge Rx Participant: Yes New Discharge Prescriptions: New Azithromycin [Zithromax] 250 mg PO HS #2 tab Nicotine 21Mg/24Hr Patch [Habitrol] 1 patch TRANSDERM DAILY patch Continue Sertraline [Zoloft] 100 mg PO BID ALPRAZolam [Xanax] 1 mg PO BID cloNIDine HCL 0.3 mg PO HS Metoprolol Tartrate [Lopressor] 25 mg PO BID Loratadine [Claritin] 10 mg PO DAILY Hydrochlorothiazide [Hydrodiuril] 25 mg PO DAILY Loperamide HCl [Imodium A-D] 4 mg PO TID PRN PRN Reason: Diarrhea Adalimumab [Humira Pen] 40 mg SQ [id number] #0 Changed HYDROcodone/APAP 10-325MG [[place] 10-325] 1 tab PO Q6H PRN #56 tab PRN Reason: Pain Discharge Medication List ALPRAZolam [Xanax] 1 mg PO BID 10/15/15 [History] Metoprolol Tartrate [Lopressor] 25 mg PO BID 10/15/15 [History] Sertraline [Zoloft] 100 mg PO BID 10/15/15 [History] cloNIDine HCL 0.3 mg PO HS 10/15/15 [History] Hydrochlorothiazide [Hydrodiuril] 25 mg PO DAILY 01/14/17 [History] Loperamide HCl [Imodium A-D] 4 mg PO TID PRN 01/14/17 [History] Loratadine [Claritin] 10 mg PO DAILY 01/14/17 [History] Adalimumab [Humira Pen] 40 mg SQ [id number] #0 01/19/17 [Rx] Azithromycin [Zithromax] 250 mg PO HS #2 tab 01/19/17 [Rx] HYDROcodone/APAP 10-325MG [[place] 10-325] 1 tab PO Q6H PRN #56 tab 01/19/17 [Rx] Nicotine 21Mg/24Hr Patch [Habitrol] 1 patch TRANSDERM DAILY patch 01/19/17 [Rx] Follow up Appointment(s)/Referral(s): Brayan Patel MD [Primary Care Provider] - 1 Week
--- NOTE | 2017-01-19 12:34 | P.PN ---
Subjective Progress Note Date: 01/19/17 46-year-old female seen and examined. Patient has been up ambulating in the hallway. Abdominal binder in place. Surgical dressings dry. Patient states pain medication effective for pain control. Patient is postop January 18 laparoscopic robotic-assisted repair of incarcerated incisional hernia. Objective - Vital Signs Vital signs: Vital Signs Temp 97.9 F 01/19/17 07:00 Pulse 64 01/19/17 07:00 Resp 16 01/19/17 07:00 BP 128/79 01/19/17 07:00 Pulse Ox 95 01/19/17 07:00 Intake & Output 01/18/17 01/19/17 01/19/17 18:59 06:59 18:59 Intake Total 900 1490 Output Total 25 70 Balance 875 1420 Intake: IV 900 1250 Sodium Chloride 0.9% 1, 500 1250 000 ml @ 125 mls/hr IV . Q8H REA Rx#:[id number] Oral 240 Output: Drainage 70 Abdomen 70 Estimated Blood Loss 25 Other: # Voids 3 - Exam Physical exam 46-year-old female ambulating in the hallway denying any dizziness lightheadedness states pain medication effective for pain control Lungs essentially clear adequate air movement Heart S1-S2 audible regular Abdomen abdominal binder be mood surgical dressings suspected dry no redness no tenderness bowel tones present no nausea no vomiting passing gas no stool Extremities no edema noted - Labs CBC & Chem 7: 01/15/17 06:36 01/15/17 06:36 Labs: Microbiology - Last 24 Hours (Table) 01/14/17 17:10 Blood Culture - Preliminary Blood No Growth after 96 hours Assessment and Plan Assessment: Impression Incarcerated incisional hernia Laparoscopic robotic-assisted repair of incarcerated incisional hernia done on January 18 Plan From a surgical perspective patient is felt to be clinically stable and appropriate to proceed with a discharge defer to the timing of the discharge to the attending service Follow-up in the outpatient setting with surgical service 1-2 weeks The above impression and plan of care have been discussed and directed by signing physician. Wanda Traylor nurse practitioner acting as scribe for signing physician.
[2017-01-28] MEDS ORDERED: ADALIMUMAB 80 MG/1.6 ML KIT SQ SCH (09:00)
== END 2017-01-19 14:15 | disposition home or self-care (01) | DRG 353 ==
LOC: EC 15:46 → 3SUR 19:54
PROVIDERS: ADMIT Internal Medicine Geriatric Medicine; ATTEND Internal Medicine Geriatric Medicine
PROC: 8E0W4CZ Robotic Assisted Procedure of Trunk Region, Percutaneous Endoscopic Approach (ICD-10-PCS; principal; 2017-01-18 10:25)
PROC: 0WQF0ZZ Repair Abdominal Wall, Open Approach (ICD-10-PCS; principal; 2017-01-18 10:25)
DX: K43.0 Incisional hernia with obstruction, without gangrene (principal); J18.9 Pneumonia, unspecified organism; K91.2 Postsurgical malabsorption, not elsewhere classified; E87.2 Acidosis; F17.200 Nicotine dependence, unspecified, uncomplicated; F32.9 Major depressive disorder, single episode, unspecified; G89.29 Other chronic pain; I10 Essential (primary) hypertension; J45.20 Mild intermittent asthma, uncomplicated; M19.90 Unspecified osteoarthritis, unspecified site; Z53.9 Procedure and treatment not carried out, unspecified reason; Z79.899 Other long term (current) drug therapy; Z82.3 Family history of stroke; Z90.49 Acquired absence of other specified parts of digestive tract; Z88.5 Allergy status to narcotic agent; Z88.3 Allergy status to other anti-infective agents
CPT/HCPCS: 36415; 71020; 74176; 80048; 81003; 81025; 83605; 85025; 85610; 85730; 87040; 88302; 88305; 93005; 96361; 96374; 96376; 99285

== ENCOUNTER 2018-04-29 11:35 | Emergency (ER) | payer OTHER ==
[2018-04-29] MEDS ORDERED: HYDROmorphone 1 MG/ML 1 ML SYRINGE IVP STA (12:00)
[2018-04-29] MEDS ORDERED: SODIUM CHLORIDE 0.9% 1,000 ML IV STA (12:00)
[2018-04-29] MEDS ORDERED: FAMOTIDINE 20 MG/2 ML VIAL IV STA (12:01)
[2018-04-29] MEDS ORDERED: ONDANSETRON 4 MG/2 ML VIAL IVP STA (12:02)
--- NOTE | 2018-04-29 12:06 | ED ---
Abdominal Pain HPI - General Chief Complaint: Abdominal Pain Stated Complaint: Stomach pain Time Seen by Provider: 04/29/18 11:52 Source: patient, RN notes reviewed Mode of arrival: ambulatory Limitations: no limitations - History of Present Illness Initial Comments: Patient is a pleasant 48-year-old female presenting to the emergency Department with complaints of abdominal discomfort. Onset of symptoms was several days ago. Patient does have history of Crohn's disease. Abdominal discomfort is diffuse. Patient has been told that she has hernias by her doctor and states discomfort is somewhat more in these areas. No associated vomiting or diarrhea. No fevers. - Related Data Home Medications Medication Instructions Recorded Confirmed ALPRAZolam [Xanax] 1 mg PO BID 10/15/15 01/14/17 Metoprolol Tartrate [Lopressor] 25 mg PO BID 10/15/15 01/14/17 Sertraline [Zoloft] 100 mg PO BID 10/15/15 01/14/17 cloNIDine HCL 0.3 mg PO HS 10/15/15 01/14/17 Hydrochlorothiazide [Hydrodiuril] 25 mg PO DAILY 01/14/17 01/14/17 Loperamide HCl [Imodium A-D] 4 mg PO TID PRN 01/14/17 01/14/17 Loratadine [Claritin] 10 mg PO DAILY 01/14/17 01/14/17 Previous Rx's Medication Instructions Recorded Adalimumab [Humira Pen] 40 mg SQ [id number] #0 01/19/17 Azithromycin [Zithromax] 250 mg PO HS #2 tab 01/19/17 HYDROcodone/APAP 10-325MG [[place] 1 tab PO Q6H PRN #56 tab 01/19/17 10-325] Nicotine 21Mg/24Hr Patch [Habitrol] 1 patch TRANSDERM DAILY patch 01/19/17 Allergies Allergy/AdvReac Type Severity Reaction Status Date / Time iodine Allergy Anaphylaxis Verified 01/15/17 17:11 morphine Allergy Anaphylaxis Verified 01/14/17 16:33 ciprofloxacin [From Cipro] AdvReac Itching Verified 01/14/17 16:33 ciprofloxacin HCl AdvReac Itching Verified 01/14/17 16:33 [From Cipro] levofloxacin [From Levaquin] AdvReac Itching Verified 01/14/17 16:33 Review of Systems ROS Statement: Those systems with pertinent positive or pertinent negative responses have been documented in the HPI. ROS Other: All systems not noted in ROS Statement are negative. Constitutional: Denies: fever Eyes: Denies: eye pain ENT: Denies: ear pain Respiratory: Denies: cough Cardiovascular: Denies: chest pain Endocrine: Denies: fatigue Gastrointestinal: Reports: abdominal pain Genitourinary: Denies: dysuria Musculoskeletal: Denies: back pain Skin: Denies: rash Neurological: Denies: weakness Past Medical History Past Medical History: Asthma, Hypertension, Osteoarthritis (OA) Additional Past Medical History / Comment(s): Crohn's disease History of Any Multi-Drug Resistant Organisms: None Reported Past Surgical History: Appendectomy, Bowel Resection, Cholecystectomy, Hernia Repair, Orthopedic Surgery Additional Past Surgical History / Comment(s): Colonoscopy, right bunionectomy and hammertoe correction, kidney cyst removed in the renal aneurysm fixed at 17 years of age. Hernia repair including inguinal and umbilical Past Anesthesia/Blood Transfusion Reactions: No Reported Reaction Past Psychological History: Depression Smoking Status: Current every day smoker Past Alcohol Use History: Rare Past Drug Use History: None Reported - Past Family History Father Family Medical History: Cancer Additional Family Medical History / Comment(s): Father is alive at age 70 with history of skin cancer, osteoarthritis and alcohol abuse. Mother Family Medical History: Cancer Additional Family Medical History / Comment(s): Mother is alive at age 67 with history of breast cancer, factor V, CVA. Brother(s) Additional Family Medical History / Comment(s): Patient has one brother with history of skin cancer, bipolar and alcohol abuse. Patient does not have any sisters. Patient had 3 children and one at 12 weeks of age. 2 daughters have no major medical problems. General Exam Limitations: no limitations General appearance: alert, in no apparent distress Head exam: Present: atraumatic Eye exam: Present: normal appearance, PERRL ENT exam: Present: normal oropharynx Neck exam: Present: normal inspection Respiratory exam: Present: normal lung sounds bilaterally Cardiovascular Exam: Present: regular rate, normal rhythm Expanded Peripheral pulses: 2+: Dorsalis Pedis (R), Dorsalis Pedis (L) GI/Abdominal exam: Present: soft, tenderness (Mild to moderate diffuse tenderness), hernia (There is small hernias in the umbilical and right upper abdomen that are mildly tender. There are soft and reducible.) Extremities exam: Present: normal inspection Neurological exam: Present: alert Psychiatric exam: Present: normal affect, normal mood Skin exam: Present: normal color Course Vital Signs 04/29/18 11:42 Temperature 98.8 F Pulse Rate 111 H Respiratory 18 Rate Blood Pressure 116/69 O2 Sat by Pulse 99 Oximetry Medical Decision Making - Medical Decision Making Patient reevaluated and updated. Patient specifically updated on need for follow-up with kidney masses. Patient did still complain of some discomfort upon reevaluation. Abdomen was soft without significant tenderness on exam. Patient was able to sit up without any difficulty. Patient does not appear in any distress. Patient states she has previously seen Dr. Schultz. Case was discussed in detail with Dr. Schultz states patient can be discharged and follow-up on Wednesday. Patient again reevaluated and updated. Patient states she still has some discomfort. Again offer was made to call Dr. Schultz one more time however patient refuses and states she will follow-up. - Lab Data Result diagrams: 04/29/18 12:04 04/29/18 12:04 Lab Results 04/29/18 04/29/18 04/29/18 Range/Units 12:04 12:04 12:04 WBC 10.5 (3.8-10.6) k/uL RBC 5.33 (3.80-5.40) m/uL Hgb 15.5 (11.4-16.0) gm/dL Hct 48.1 H (34.0-46.0) % MCV 90.2 (80.0-100.0) fL MCH 29.0 (25.0-35.0) pg MCHC 32.2 (31.0-37.0) g/dL RDW 14.4 (11.5-15.5) % Plt Count 337 (150-450) k/uL Neutrophils % 71 % Lymphocytes % 21 % Monocytes % 3 % Eosinophils % 2 % Basophils % 1 % Neutrophils # 7.5 (1.3-7.7) k/uL Lymphocytes # 2.3 (1.0-4.8) k/uL Monocytes # 0.4 (0-1.0) k/uL Eosinophils # 0.2 (0-0.7) k/uL Basophils # 0.1 (0-0.2) k/uL PT 9.5 (9.0-12.0) sec INR 0.9 (<1.2) APTT 25.7 (22.0-30.0) sec Sodium 139 (137-145) mmol/L Potassium 3.6 (3.5-5.1) mmol/L Chloride 106 (98-107) mmol/L Carbon Dioxide 24 (22-30) mmol/L Anion Gap 9 mmol/L BUN 13 (7-17) mg/dL Creatinine 0.64 (0.52-1.04) mg/dL Est GFR (CKD-EPI)AfAm >90 (>60 ml/min/1.73 sqM) Est GFR (CKD-EPI)NonAf >90 (>60 ml/min/1.73 sqM) Glucose 104 H (74-99) mg/dL Calcium 10.0 (8.4-10.2) mg/dL Total Bilirubin 0.4 (0.2-1.3) mg/dL AST 18 (14-36) U/L ALT 23 (9-52) U/L Alkaline Phosphatase 86 (38-126) U/L Total Protein 7.2 (6.3-8.2) g/dL Albumin 4.0 (3.5-5.0) g/dL Amylase 46 (30-110) U/L Lipase 55 (23-300) U/L Urine Color Urine Appearance (Clear) Urine pH (5.0-8.0) Ur Specific [place] (1.001-1.035) Urine Protein (Negative) Urine Glucose (UA) (Negative) Urine Ketones (Negative) Urine Blood (Negative) Urine Nitrite (Negative) Urine Bilirubin (Negative) Urine Urobilinogen (<2.0) mg/dL Ur Leukocyte Esterase (Negative) Urine RBC (0-5) /hpf Urine WBC (0-5) /hpf Ur Squamous Epith Cells (0-4) /hpf Amorphous Sediment (None) /hpf Urine Bacteria (None) /hpf Urine Mucus (None) /hpf 04/29/18 Range/Units 12:10 WBC (3.8-10.6) k/uL RBC (3.80-5.40) m/uL Hgb (11.4-16.0) gm/dL Hct (34.0-46.0) % MCV (80.0-100.0) fL MCH (25.0-35.0) pg MCHC (31.0-37.0) g/dL RDW (11.5-15.5) % Plt Count (150-450) k/uL Neutrophils % % Lymphocytes % % Monocytes % % Eosinophils % % Basophils % % Neutrophils # (1.3-7.7) k/uL Lymphocytes # (1.0-4.8) k/uL Monocytes # (0-1.0) k/uL Eosinophils # (0-0.7) k/uL Basophils # (0-0.2) k/uL PT (9.0-12.0) sec INR (<1.2) APTT (22.0-30.0) sec Sodium (137-145) mmol/L Potassium (3.5-5.1) mmol/L Chloride (98-107) mmol/L Carbon Dioxide (22-30) mmol/L Anion Gap mmol/L BUN (7-17) mg/dL Creatinine (0.52-1.04) mg/dL Est GFR (CKD-EPI)AfAm (>60 ml/min/1.73 sqM) Est GFR (CKD-EPI)NonAf (>60 ml/min/1.73 sqM) Glucose (74-99) mg/dL Calcium (8.4-10.2) mg/dL Total Bilirubin (0.2-1.3) mg/dL AST (14-36) U/L ALT (9-52) U/L Alkaline Phosphatase (38-126) U/L Total Protein (6.3-8.2) g/dL Albumin (3.5-5.0) g/dL Amylase (30-110) U/L Lipase (23-300) U/L Urine Color Yellow Urine Appearance Clear (Clear) Urine pH 6.0 (5.0-8.0) Ur Specific [place] 1.006 (1.001-1.035) Urine Protein Negative (Negative) Urine Glucose (UA) Negative (Negative) Urine Ketones Negative (Negative) Urine Blood Negative (Negative) Urine Nitrite Negative (Negative) Urine Bilirubin Negative (Negative) Urine Urobilinogen <2.0 (<2.0) mg/dL Ur Leukocyte Esterase Small H (Negative) Urine RBC 1 (0-5) /hpf Urine WBC 15 H (0-5) /hpf Ur Squamous Epith Cells 6 H (0-4) /hpf Amorphous Sediment Rare H (None) /hpf Urine Bacteria Many H (None) /hpf Urine Mucus Rare H (None) /hpf - Radiology Data Radiology results: report reviewed (Computed tomography scan of the abdomen pelvis shows postoperative changes. Mild enteritis. Very mild induration near pancreatic head. Nonspecific lymphadenopathy. Left kidney masses 2, 1.2 and 1.4 cm.) Disposition Clinical Impression: Abdominal pain Disposition: HOME SELF-CARE Condition: Stable Instructions (If sedation given, give patient instructions): Abdominal Pain (ED ) Additional Instructions: Please follow-up Wednesday [address] Schultz. Return for increased pain, fever, vomiting, worsening symptoms or other concerns. Please have your primary care physician reevaluate kidney nodules with ultrasound. They should follow-up with computed tomography scan done today. Is patient prescribed a controlled substance at d/c from ED?: No Referrals: Brayan Patel MD [Primary Care Provider] - 1-2 days Time of Disposition: 14:59
[2018-04-29] MEDS ORDERED: methylPREDNISolone SOD SUCCI 125 MG/2 ML VIAL IV STA (12:12)
[2018-04-29] MEDS ORDERED: diphenhydrAMINE 50 MG/ML 1 ML VIAL IVP STA ×2 (12:12→13:27)
[2018-04-29 12:20] LABS: Basophils # (A) 0.1 k/uL (0-0.2); Basophils % (A) 1 %; Eosinophils # (A) 0.2 k/uL (0-0.7); Eosinophils % (A) 2 %; HCT 48.1 % (34.0-46.0); HGB 15.5 gm/dL (11.4-16.0); Lymphocytes # (A) 2.3 k/uL (1.0-4.8); Lymphocytes % (A) 21 %; MCHC 32.2 g/dL (31.0-37.0); MCV 90.2 fL (80.0-100.0); Mean Platelet Volume 6.8; Monocytes # (A) 0.4 k/uL (0-1.0); Monocytes % (A) 3 %; Neutrophils # (A) 7.5 k/uL (1.3-7.7); Neutrophils % (A) 71 %; Platelet Count 337 k/uL (150-450); RBC 5.33 m/uL (3.80-5.40); RDW 14.4 % (11.5-15.5); WBC 10.5 k/uL (3.8-10.6)
[2018-04-29 12:28] LABS: Amorphous Sediment,Urine Rare /hpf; Appearance,Urine Clear (Clear); Bacteria,Urine Many /hpf; Bilirubin,Urine Negative (Negative); Blood,Urine Negative (Negative); Color,Urine Yellow; Glucose,Urine (UA) Negative (Negative); Ketones,Urine Negative (Negative); Leukocyte Esterase,Urine Small (Negative); Mucus,Urine Rare /hpf; Nitrite,Urine Negative (Negative); Protein,Urine Negative (Negative); RBC,Urine 1 /hpf (0-5); Specific Gravity,Urine 1.006 (1.001-1.035); Squamous Epithelial Cell,Urine 6 /hpf (0-4); Urobilinogen,Urine <2.0 mg/dL (<2.0); WBC,Urine 15 /hpf (0-5)
[2018-04-29 12:30] LABS: ALT 23 U/L (9-52); AST 18 U/L (14-36); Alkaline Phosphatase 86 U/L (38-126); Amylase 46 U/L (30-110); Anion Gap 9 mmol/L; Blood Urea Nitrogen 13 mg/dL (7-17); Carbon Dioxide 24 mmol/L (22-30); Chloride 106 mmol/L (98-107); Glucose 104 mg/dL (74-99); Lipase 55 U/L (23-300); Potassium 3.6 mmol/L (3.5-5.1); Sodium 139 mmol/L (137-145); Total Bilirubin 0.4 mg/dL (0.2-1.3); Total Protein 7.2 g/dL (6.3-8.2)
[2018-04-29 12:33] LABS: INR 0.9 (<1.2); Partial Thromboplastin Time 25.7 sec (22.0-30.0); Prothrombin Time 9.5 sec (9.0-12.0)
--- NOTE | 2018-04-29 13:43 | CT ---
EXAMINATION TYPE: CT abdomen pelvis w con DATE OF EXAM: 04/29/2018 COMPARISON: 01/14/2017 HISTORY: Stomach pains, history of Crohns disease CT DLP: 650.1 mGycm Automated exposure control for dose reduction was used. CONTRAST: CT scan of the abdomen pelvis is performed with IV Contrast, patient injected with 100 mL of Isovue 3 00. FINDINGS- LUNG BASES-subsegmental changes at both lung bases.. Tiny pericardial effusion. LIVER/GB-postcholecystectomy changes are noted. There is mild intrahepatic delayed dilation likely re lated to postcholecystectomy changes.. PANCREAS-mild induration of the peripancreatic fat surrounding the pancreatic head may be related to partial volume averaging recommend correlation with pancreatic enzymes.. SPLEEN- No gross abnormality is seen. ADRENALS- No gross abnormality is seen. KIDNEYS/BLADDER-no hydronephrosis. However, there are 2 lesions within the left kidney which do not m eet the criteria of a cyst measuring approximately 1.2 and 1.4 cm respectively midpole anterior and p osterior cortex left kidney.. BOWEL-bowel gas is nonspecific with no obstruction. Previous surgery involving the region of the righ t colon noted. There are number of fluid-filled small bowel loops with mildly thickened solomon. No sig nificant inflammatory changes. Mild enteritis would be the differential diagnosis.. LYMPH NODES-and the left periaortic region there is a 1.2 cm area of adenopathy not clearly seen on t he prior exam.. OSSEOUS STRUCTURES-sclerotic lesion involving the lower left rib cage likely related to bone island. Chronic appearing deformity of the S1 level represent Schmorl's node. OTHER- there is edema in the anterior subcutaneous soft tissues which is nonspecific. Small anterior abdominal wall fat-containing hernia noted. IMPRESSION- 1. 1. Postoperative change involving the right colon with a number of fluid-filled small bowel loops but no definite inflammatory changes. Correlate for mild enteritis. 2. Assessment left colon and sigmoid colon limited due to incomplete distention. 3. Very mild induration of the fat near the pancreatic head correlate with pancreatic enzymes to excl ude a very mild pancreatitis 4. Left para-aortic nonspecific lymphadenopathy correlate clinically. 5. There are 2 masses within the left kidney which do not meet the criteria of a cyst. Solid neoplasm including malignancy in the differential diagnosis recommend ultrasound follow-up.
[2018-04-29] MEDS ORDERED: HYDROcodone/APAP 5-325MG 1 EACH TAB PO STA (14:59)
[2018-04-29 15:33] VITALS: BP 124/80; PULSE 84; RESP 19; TEMP 98
== END 2018-04-29 15:32 | disposition home or self-care (01) ==
LOC: EC 11:35
DX: R10.84 Generalized abdominal pain (principal); N28.89 Other specified disorders of kidney and ureter; I10 Essential (primary) hypertension; F41.9 Anxiety disorder, unspecified; F17.200 Nicotine dependence, unspecified, uncomplicated; Z79.899 Other long term (current) drug therapy; Z91.048 Other nonmedicinal substance allergy status; Z88.1 Allergy status to other antibiotic agents; Z88.5 Allergy status to narcotic agent; Z90.49 Acquired absence of other specified parts of digestive tract; Z90.89 Acquired absence of other organs; Z87.19 Personal history of other diseases of the digestive system
CPT/HCPCS: 36415; 80053; 82150; 83690; 85025; 85610; 85730; 81001; 74177; 99284; 96374; 96375 ×4; 96376; 96361 ×3; J1200; J2930; J2405; J1170; Q9967

== ENCOUNTER → 2018-05-06 | Outpatient (CLI) | payer OTHER ==
[2018-05-06 11:34] LABS: Basophils # (A) 0.1 k/uL (0-0.2); Basophils % (A) 1 %; Eosinophils # (A) 0.2 k/uL (0-0.7); Eosinophils % (A) 2 %; HCT 46.1 % (34.0-46.0); HGB 14.8 gm/dL (11.4-16.0); Lymphocytes # (A) 2.4 k/uL (1.0-4.8); Lymphocytes % (A) 18 %; MCH 29.5 pg (25.0-35.0); MCV 92.2 fL (80.0-100.0); Mean Platelet Volume 7.8; Monocytes # (A) 0.5 k/uL (0-1.0); Monocytes % (A) 4 %; Neutrophils # (A) 9.9 k/uL (1.3-7.7); Neutrophils % (A) 74 %; Platelet Count 312 k/uL (150-450); RDW 14.2 % (11.5-15.5); WBC 13.4 k/uL (3.8-10.6)
== END | disposition home or self-care (01) ==
LOC: LABWHC1 11:00
PROVIDERS: ATTEND Surgery
DX: Z01.812 Encounter for preprocedural laboratory examination (principal); K43.2 Incisional hernia without obstruction or gangrene; F17.200 Nicotine dependence, unspecified, uncomplicated
CPT/HCPCS: 36415; 85025

== ENCOUNTER 2018-05-11 07:36 | Day surgery (SDC) | payer OTHER ==
[2018-05-06 16:22] VITALS: BMI 20.8
[~2018-05-11 07:36] MED LIST: DEXAMETHASONE SOD PHOSPHATE 10 MG/ML 1 ML VIAL IV ONE; HEPARIN SODIUM,PORCINE 5,000 UNIT/ML 1 ML VIAL SQ ONE; LACTATED RINGERS 1,000 ML IV SCH; LIDOCAINE 1% 20 ML VIAL (10MG/ML) FOR IV START INTRADERMA PRN; MIDAZOLAM (PF) 2 MG/2 ML VIAL IV PRN; ONDANSETRON 4 MG/2 ML VIAL IVP ONE; SCOPOLAMINE 1.5MG/72HR PATCH TRANSDERM ONE; ceFAZolin IN SWFI 2 GM/20 ML SYRINGE IVP ONE
[2018-05-11] MEDS ORDERED: MIDAZOLAM 2 MG/2 ML VIAL IV ONE (08:48)
[2018-05-11] MEDS ORDERED: fentaNYL (PF) 50 MCG/ML 2 ML AMP IV ONE (08:48)
--- NOTE | 2018-05-11 09:14 | P.GSHP ---
History of Present Illness H&P Date: 05/11/18 Chief Complaint: Recurrent incarcerated incisional hernia This is a 48-year-old female who presents today for open repair of right a recurrent incarcerated incisional hernia. Patient has a right subcostal incision with evidence of a recurrent hernia. There appears to be incarcerated omentum within the hernia. 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 Hernia repair including inguinal and umbilical Past Anesthesia/Blood Transfusion Reactions: No Reported Reaction Smoking Status: Current every day smoker - Past Family History Father Family Medical History: Cancer Additional Family Medical History / Comment(s): Father is alive at age 70 with history of skin cancer, osteoarthritis and alcohol abuse. Mother Family Medical History: Cancer Additional Family Medical History / Comment(s): Mother is alive at age 67 with history of breast cancer, factor V, CVA. Brother(s) Additional Family Medical History / Comment(s): Patient has one brother with history of skin cancer, bipolar and alcohol abuse. Patient does not have any sisters. Patient had 3 children and one at 12 weeks of age. 2 daughters have no major medical problems. Medications and Allergies Home Medications Medication Instructions Recorded Confirmed Type ALPRAZolam [Xanax] 1 mg PO BID 10/15/15 05/11/18 History Metoprolol Tartrate [Lopressor] 25 mg PO BID 10/15/15 05/11/18 History Sertraline [Zoloft] 100 mg PO BID 10/15/15 05/11/18 History cloNIDine HCL 0.3 mg PO HS 10/15/15 05/11/18 History Hydrochlorothiazide [Hydrodiuril] 25 mg PO DAILY 01/14/17 05/11/18 History Loperamide HCl [Imodium A-D] 4 mg PO TID PRN 01/14/17 05/11/18 History Loratadine [Claritin] 10 mg PO DAILY 01/14/17 05/11/18 History Adalimumab [Humira Pen] 40 mg SQ [id number] #0 01/19/17 05/11/18 Rx HYDROcodone/APAP 10-325MG [[place] 1 tab PO Q6H PRN #56 tab 01/19/17 05/11/18 Rx 10-325] Allergies Allergy/AdvReac Type Severity Reaction Status Date / Time Iodinated Contrast- Oral and Allergy Anaphylaxis Verified 05/11/18 08:10 IV Dye morphine Allergy Anaphylaxis Verified 05/11/18 08:10 ciprofloxacin [From Cipro] AdvReac Itching Verified 05/11/18 08:10 ciprofloxacin HCl AdvReac Itching Verified 05/11/18 08:10 [From Cipro] levofloxacin [From Levaquin] AdvReac Itching Verified 05/11/18 08:10 Surgical - Exam Vital Signs Temp Pulse Resp BP Pulse Ox 98.9 F 67 16 97/55 98 05/11/18 08:21 05/11/18 08:21 05/11/18 08:21 05/11/18 08:21 05/11/18 08:21 - General well developed, well nourished, no distress - Eyes PERRL - ENT normal pinna - Neck no masses - Respiratory normal expansion - Cardiovascular Rhythm: regular - Abdomen Abdomen: soft, non tender Hernia: incisional (Recurrent incarcerated incisional hernia approximate 4 cm in diameter) Assessment and Plan Assessment: Recurrent incarcerated incisional hernia. We'll perform open repair.
[2018-05-11] MEDS ORDERED: ROPIVACAINE 5 MG/ML 30 ML VIAL ONE (09:34)
[2018-05-11] MEDS ORDERED: PHENYLEPHRINE-0.9% NACL SYG 1 MG/10 ML SYRINGE ONE (09:34)
[2018-05-11] MEDS ORDERED: NEOSTIGMINE 1 MG/ML 10 ML VIAL ONE (09:34)
[2018-05-11] MEDS ORDERED: LIDOCAINE 1% INJ 10MG/ML (20 ML MDV) ONE (09:34)
[2018-05-11] MEDS ORDERED: PROPOFOL 10 MG/ML 20 ML VIAL IV ONE (09:34)
[2018-05-11] MEDS ORDERED: LIDOCAINE 2% INJ 20 MG/ML (20 ML MDV) ONE (09:34)
[2018-05-11] MEDS ORDERED: GLYCOPYRROLATE 0.2 MG/ML 2 ML VIAL ONE (09:34)
[2018-05-11] MEDS ORDERED: HYDROmorphone (PF) 1 MG/ML ONE (09:34)
[2018-05-11] MEDS ORDERED: ROCURONIUM BROMIDE 10 MG/ML 10 ML VIAL IV ONE (09:34)
[2018-05-11] MEDS ORDERED: fentaNYL (PF) 50 MCG/ML 50 ML VIAL ONE (09:34)
[2018-05-11] MEDS ORDERED: BUPIVACAINE-EPI 0.5%-1:200,000 10 ML VIAL SQ ONE (10:02)
[2018-05-11] MEDS ORDERED: LACTATED RINGERS 1,000 ML IV ONE (10:27)
[2018-05-11] MEDS ORDERED: diphenhydrAMINE 50 MG/ML 1 ML VIAL IVP ONE ×2 (10:33→11:02)
--- NOTE | 2018-05-11 10:39 | P.OP ---
Date of Procedure: 05/11/18 Preoperative Diagnosis: Recurrent incarcerated incisional hernia Postoperative Diagnosis: Recurrent incarcerated incisional hernia Procedure(s) Performed: Repair of recurrent incarcerated incisional hernia Removal of mesh Anesthesia: ELLI Surgeon: Artemio Schultz Estimated Blood Loss (ml): 10 Pathology: other (Mesh) Condition: stable Disposition: PACU Description of Procedure: The patient's placed on the operative table in supine position. She received general anesthesia. Her abdomen was prepped and draped usual sterile fashion. The skin was incised through her previous right subcostal incision. The hernia had been marked in the preoperative hold area. Using cautery and subcu tissue divided. The patient was found to have mesh that was free-floating. There was an incarcerated hernia just below this. The free-floating mesh was dissected and then excised and sent to pathology. The fascia was exposed using left cautery. The hernia was encountered there appeared to be some omentum within the hernia. The omentum was reduced back into the peritoneal cavity. The fascial defect was then closed with [id number] 0 Ethibond suture. A new piece of Prolene mesh was then placed on top of the hernia repair. This is secured the secure strand tacker. A NELDA drains placed through separate stab incision Mike's fascia was closed 0 Vicryl. Skin was closed with arian. Dressing was applied. Patient tolerated the well and was sent to recovery in stable condition.
[2018-05-11 10:47] VITALS: TEMP 97.2
[2018-05-11] MEDS ORDERED: HYDROmorphone 1 MG/ML 1 ML SYRINGE IVP ONE ×2 (10:54→11:00)
[2018-05-11 11:14] VITALS: RESP 18
[2018-05-11 11:38] VITALS: BP 99/62; PULSE 52
--- NOTE | 2018-05-11 12:20 | P.ONQ ---
Anesthesiology Proc Note - PNB - Peripheral Nerve Block Performed Right Transversus Abdominis Single Time Out Performed: Yes (0849) Procedure Start Time: 08:49 Procedure Stop Time: 08:55 Indication: Acute Post-Operative Pain, Dx/Pain Location (abdominal Pain), Requested by physician Sedation Type: Sedate with meaningful contact maintained Preparation: Sterile Prep Catheter: None Needle Types: On-Q Needle Size: 100mm (4") Needle Gauge: 21 Technique: Ultrasound Injectate: Other (see comment) (20ml 0.25% Ropivacaine) Blood Aspirated: No Pain Paresthesia on Injection Noted: No Resistance on Injection: Normal Events: Uneventful and Well Tolerated
--- NOTE | 2018-05-11 12:21 | P.ONQ ---
Anesthesiology Proc Note - PNB - Peripheral Nerve Block Performed Right Rectus Abdominis Single Time Out Performed: Yes (1568) Procedure Start Time: 08:50 Procedure Stop Time: 09:00 Indication: Acute Post-Operative Pain, Dx/Pain Location (abdominal pain) Sedation Type: Sedate with meaningful contact maintained Preparation: Sterile Prep Position: Supine Catheter: None Needle Types: On-Q Needle Size: 100mm (4") Needle Gauge: 21 Technique: Ultrasound Injectate: Other (see comment) (20ml 0.25% Ropivacaine) Blood Aspirated: No Pain Paresthesia on Injection Noted: No Resistance on Injection: Normal Events: Uneventful and Well Tolerated
== END 2018-05-11 12:10 | disposition home or self-care (01) ==
LOC: OR 07:36
PROVIDERS: ATTEND Surgery
DX: K43.0 Incisional hernia with obstruction, without gangrene (principal); I10 Essential (primary) hypertension; J45.909 Unspecified asthma, uncomplicated; F17.210 Nicotine dependence, cigarettes, uncomplicated; M19.90 Unspecified osteoarthritis, unspecified site; Z79.899 Other long term (current) drug therapy; Z88.5 Allergy status to narcotic agent; Z88.8 Allergy status to other drugs, medicaments and biological substances; Z88.1 Allergy status to other antibiotic agents; Z91.041 Radiographic dye allergy status; Z79.891 Long term (current) use of opiate analgesic; Z90.49 Acquired absence of other specified parts of digestive tract
CPT/HCPCS: 88302; 49566; 49568; 64486; J2001 ×2; J2250; J1200; J1644; J1100; J3010 ×2; J2710; J2405; J1170; J2795; J2370; J2704; J0690

== ENCOUNTER → 2023-07-21 | Outpatient (CLI) | payer BC, OTHER ==
[2023-07-21 08:34] LABS: African American GFR (CKD) >90 (>60 ml/min/1.73 sqM); Blood Urea Nitrogen 12 mg/dL (7-17); Non-African American GFR(CKD) >90 (>60 ml/min/1.73 sqM)
--- NOTE | 2023-07-21 10:44 | CT ---
EXAMINATION TYPE: CT abdomen pelvis w con DATE OF EXAM: 07/21/2023 COMPARISON: 04/29/2018 INDICATION: abd pain DLP: 1002 mGycm, Automated exposure control for dose reduction was used. CONTRAST: 100 mL of Isovue 300. Study performed with Oral Contrast TECHNIQUE: Axial images were obtained from above the diaphragm to the pubic rami in the axial plane a t 5 mm thick sections. Reconstructed images are reviewed on the computer in the coronal plane. FINDINGS: Limited CT sections are obtained the lung bases. The lung bases are clear. CT ABDOMEN: Liver: Normal Spleen: Normal Pancreas: Normal Adrenal glands: The adrenal glands are normal. Gallbladder: Surgically absent Kidneys: No masses are evident. No hydronephrosis is present. No cysts are present. Delayed images were obtained through the kidneys, which remain unremarkable. Aorta: Vascular calcification is within the aorta. Inferior vena cava: Normal. CT PELVIS: Anterior abdominal wall through the abdomen and pelvis appears intact. No hernia is eviden t. There is some mild wall thickening within the transverse colon. No adjacent inflammatory changes evid ent. Correlate for mild colitis. There are loops of bowel which are incompletely distended or lack or al contrast limiting their evaluation. Appendix: Not visualized. No inflammatory changes or dilated tubular structures. Urinary bladder: Normal. Genitourinary structures: Uterus is unremarkable. Adnexa are normal. Osseous structures: No suspicious lytic or sclerotic lesions. IMPRESSION: 1. No anterior abdominal wall hernias evident. 2. There may be some mild wall thickening of the transverse colon. Correlate for mild colitis.
== END | disposition home or self-care (01) ==
LOC: RADCTMAIN 07:40
PROVIDERS: ATTEND Surgery
DX: K43.2 Incisional hernia without obstruction or gangrene (principal); R10.9 Unspecified abdominal pain
CPT/HCPCS: 82565; 84520; 74177; 36415; Q9967

== ENCOUNTER 2023-08-30 10:41 | Day surgery (SDC) | payer BC, OTHER ==
[~2023-08-30 10:41] MED LIST changes: -DEXAMETHASONE SOD PHOSPHATE 10 MG/ML 1 ML VIAL IV ONE; -HEPARIN SODIUM,PORCINE 5,000 UNIT/ML 1 ML VIAL SQ ONE; -LACTATED RINGERS 1,000 ML IV SCH; -LIDOCAINE 1% 20 ML VIAL (10MG/ML) FOR IV START INTRADERMA PRN; -MIDAZOLAM (PF) 2 MG/2 ML VIAL IV PRN; -ONDANSETRON 4 MG/2 ML VIAL IVP ONE; +Pre Op ABX Message 1 EACH MISC MISCELLANE ONE; -SCOPOLAMINE 1.5MG/72HR PATCH TRANSDERM ONE; -ceFAZolin IN SWFI 2 GM/20 ML SYRINGE IVP ONE
[2023-08-30] MEDS: ONDANSETRON 4 MG/2 ML VIAL IVP ONE (11:29)
[2023-08-30] MEDS: LACTATED RINGERS 1,000 ML IV SCH (11:29)
[2023-08-30] MEDS: DEXAMETHASONE SOD PHOSPHATE 4 MG/ML 1 ML VIAL IV ONE (11:29)
[2023-08-30] MEDS: IV FLUID CONTINUATION 1,000 ML IV ONE ×2 (11:32→15:30)
[2023-08-30] MEDS: HEPARIN SODIUM,PORCINE 5,000 UNIT/ML 1 ML VIAL SQ STA (11:44)
--- NOTE | 2023-08-30 14:41 | P.GSHP ---
History of Present Illness H&P Date: 08/30/23 Chief Complaint: abdominal pain, partial small bowel obstruction, adhesions this a 53-year-old female who presents today for laparoscopic lysis of adhesions. Patient has had several laparotomies. Patient has a chronic abdominal pain which is felt to be due to adhesions. 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 Hernia repair including inguinal and umbilical Past Anesthesia/Blood Transfusion Reactions: No Reported Reaction Past Psychological History: Depression Past Alcohol Use History: Rare Additional Past Alcohol Use History / Comment(s): patient is a smoker one pack per day for 30 years. Past Drug Use History: None Reported - Past Family History Father Family Medical History: Cancer Additional Family Medical History / Comment(s): Father is alive at age 70 with history of skin cancer, osteoarthritis and alcohol abuse. Mother Family Medical History: Cancer Additional Family Medical History / Comment(s): Mother is alive at age 67 with history of breast cancer, factor V, CVA. Brother(s) Additional Family Medical History / Comment(s): Patient has one brother with history of skin cancer, bipolar and alcohol abuse. Patient does not have any sisters. Patient had 3 children and one at 12 weeks of age. 2 daughters have no major medical problems. Medications and Allergies Home Medications Medication Instructions Recorded Confirmed Type ALPRAZolam [Xanax] 1 mg PO BID PRN 10/15/15 08/30/23 History Metoprolol Tartrate [Lopressor] 25 mg PO BID 10/15/15 08/30/23 History Sertraline [Zoloft] 100 mg PO BID 10/15/15 08/30/23 History cloNIDine HCL [Catapres] 0.3 mg PO HS 10/15/15 08/30/23 History Loperamide HCl [Imodium A-D] 4 mg PO TID PRN 01/14/17 08/30/23 History Loratadine [Claritin] 10 mg PO DAILY PRN 01/14/17 08/30/23 History hydroCHLOROthiazide [Hydrodiuril] 25 mg PO DAILY 01/14/17 08/30/23 History HYDROcodone/APAP 10-325MG [[place] 1 tab PO Q6H PRN #56 tab 01/19/17 08/30/23 Rx 10-325] Albuterol Inhaler [Ventolin Hfa 1 - 2 puff INHALATION Q6H PRN 08/30/23 08/30/23 History Inhaler] Omeprazole 20 mg PO DAILY 08/30/23 08/30/23 History Allergies Allergy/AdvReac Type Severity Reaction Status Date / Time Iodinated Contrast Media Allergy Anaphylaxis Verified 08/30/23 11:03 [Iodinated Contrast- Oral and IV Dye] morphine Allergy Anaphylaxis Verified 08/30/23 11:03 ciprofloxacin [From Cipro] AdvReac Itching Verified 08/30/23 11:03 ciprofloxacin HCl AdvReac Itching Verified 08/30/23 11:03 [From Cipro] levofloxacin [From Levaquin] AdvReac Itching Verified 08/30/23 11:03 Surgical - Exam Vital Signs Temp Pulse Resp BP Pulse Ox 97.7 F 96 18 169/82 95 08/30/23 11:00 08/30/23 11:00 08/30/23 11:00 08/30/23 11:08/30/23 11:00 - General well developed, well nourished, no distress - Eyes PERRL - ENT normal pinna - Neck no masses - Respiratory normal expansion - Cardiovascular Rhythm: regular - Abdomen Abdomen: soft, non tender Assessment and Plan Assessment: adhesions. We'll perform laparoscopic lysis of adhesions.
[2023-08-30] MEDS ORDERED: MIDAZOLAM 2 MG/2 ML VIAL ONE (15:01)
[2023-08-30] MEDS ORDERED: LIDOCAINE 1% INJ 10MG/ML (20 ML MDV) ONE (15:01)
[2023-08-30] MEDS ORDERED: PROPOFOL 10 MG/ML 20 ML VIAL IV ONE (15:01)
[2023-08-30] MEDS ORDERED: NEOSTIGMINE 1 MG/ML 10 ML VIAL ONE (15:01)
[2023-08-30] MEDS ORDERED: ROCURONIUM 10 MG/ML (5 ML VIAL) IV ONE (15:01)
[2023-08-30] MEDS ORDERED: SUCCINYLCHOLINE CHLORIDE 200 MG/10 ML VIAL IV ONE (15:01)
[2023-08-30] MEDS ORDERED: GLYCOPYRROLATE 0.2 MG/ML 2 ML VIAL ONE (15:01)
[2023-08-30] MEDS ORDERED: fentaNYL (PF) 50 MCG/ML 2 ML AMP ONE (15:01)
[2023-08-30] MEDS ORDERED: ceFAZolin 1 GM/50 ML BAG (PMX) ONE (15:01)
[2023-08-30] MEDS: SODIUM CHLORIDE 0.9% 100 ML with ceFAZolin 2,000 MG IV ONE (15:27)
[2023-08-30] MEDS: LIDOCAINE 1%-EPI 1:100,000 20 ML VIAL SQ ONE (15:28)
--- NOTE | 2023-08-30 15:51 | P.OP ---
Date of Procedure: 08/30/23 Preoperative Diagnosis: adhesions Postoperative Diagnosis: adhesions Procedure(s) Performed: laparoscopic lysis of adhesions Anesthesia: ELLI Surgeon: Artemio Schultz Estimated Blood Loss (ml): 5 Pathology: none sent Condition: stable Disposition: PACU Description of Procedure: the patient's placed on the operative table in the supine position. She received general endotracheal tube anesthesia. Using a 5 mm optical trocar and left upper quadrant the Cavity is entered. Upon entering. Cavity the abdomen was insufflate. After adequate insufflation lactulose placed back. Cavity. There were significant adhesions along the midline. Next a 5 mm trochars placed in the left lateral position and another 5 mm trochars was left lower position. The scope was then positioned in the mid trocar. Using the Harmonic scissors the adhesions were lysed. Approximately 20 minutes operative time used to lyse adhesions. there was no injury seen to the bowel. This point the scope was withdrawn.the trochars withdrawn. The skin was closed interrupted 3-0 Monocryl suture. Dermabond was applied. Patient totolerated the procedure well. She was sent to recovery in stable condition.
[2023-08-30 16:10] VITALS: TEMP 97
[2023-08-30] MEDS: fentaNYL (PF) 50 MCG/ML 2 ML AMP IV PRN (16:25)
[2023-08-30 16:40] VITALS: RESP 16
[2023-08-30 17:24] VITALS: BP 145/78; PULSE 85
== END 2023-08-30 17:13 | disposition home or self-care (01) ==
LOC: OR 10:41
PROVIDERS: ATTEND Surgery
DX: K66.0 Peritoneal adhesions (postprocedural) (postinfection) (principal); K56.600 Partial intestinal obstruction, unspecified as to cause; G89.29 Other chronic pain; M19.90 Unspecified osteoarthritis, unspecified site; J45.909 Unspecified asthma, uncomplicated; I10 Essential (primary) hypertension; F32.A Depression, unspecified; F10.90 Alcohol use, unspecified, uncomplicated; Z79.899 Other long term (current) drug therapy; Z88.1 Allergy status to other antibiotic agents; Z90.49 Acquired absence of other specified parts of digestive tract; Z91.041 Radiographic dye allergy status; Z98.890 Other specified postprocedural states; Z79.51 Long term (current) use of inhaled steroids; Z88.5 Allergy status to narcotic agent
CPT/HCPCS: 44180; J2250; J0330; J1644; J1100; J2710; J2405; J0690 ×2; J2001; J3010; J2704; J1596

== ENCOUNTER 2023-08-31 00:04 | Emergency (ER) | payer BC ==
[2023-08-31 00:12] VITALS: RESP 18; TEMP 98
--- NOTE | 2023-08-31 00:55 | ED ---
General Adult HPI - General Chief complaint: Abdominal Pain Stated complaint: PostOp- Swollen belly, ABD Pain Time Seen by Provider: 08/31/23 00:16 Source: patient Mode of arrival: ambulatory Limitations: no limitations - History of Present Illness Initial comments: Dictation was produced using [employer] dictation software. please excuse any grammatical, word or spelling errors. Chief Complaint: 53-year-old female presents to the emergency department for abdominal distention History of Present Illness: Patient 53-year-old female presents with abdominal distention. Earlier today she had a exploratory laparoscopy performed by Dr. Schultz. Patient states she was discharged home at around 6:00 PM patient got home started to notice significant bulging to her left abdomen. Patient states it hurts. Patient states pain is worse with deep inspiration. The ROS documented in this emergency department record has been reviewed and confirmed by me. Those systems with pertinent positive or negative responses have been documented in the HPI. All other systems are other negative and/or noncontributory. - Related Data Home Medications Medication Instructions Recorded Confirmed ALPRAZolam [Xanax] 1 mg PO BID PRN 10/15/15 08/30/23 Metoprolol Tartrate [Lopressor] 25 mg PO BID 10/15/15 08/30/23 Sertraline [Zoloft] 100 mg PO BID 10/15/15 08/30/23 cloNIDine HCL [Catapres] 0.3 mg PO HS 10/15/15 08/30/23 Loperamide HCl [Imodium A-D] 4 mg PO TID PRN 01/14/17 08/30/23 Loratadine [Claritin] 10 mg PO DAILY PRN 01/14/17 08/30/23 hydroCHLOROthiazide [Hydrodiuril] 25 mg PO DAILY 01/14/17 08/30/23 Albuterol Inhaler [Ventolin Hfa 1 - 2 puff INHALATION Q6H PRN 08/30/23 08/30/23 Inhaler] Omeprazole 20 mg PO DAILY 08/30/23 08/30/23 Previous Rx's Medication Instructions Recorded HYDROcodone/APAP 10-325MG [[place] 1 tab PO Q6H PRN #56 tab 01/19/17 10-325] Acetaminophen Tab [Tylenol] 650 mg PO Q6H #30 tab 08/30/23 Docusate [Colace] 100 mg PO BID #20 capsule 08/30/23 Ibuprofen [Motrin] 600 mg PO Q6HR PRN #40 tab 08/30/23 Allergies Allergy/AdvReac Type Severity Reaction Status Date / Time Iodinated Contrast Media Allergy Anaphylaxis Verified 08/30/23 11:03 [Iodinated Contrast- Oral and IV Dye] morphine Allergy Anaphylaxis Verified 08/30/23 11:03 ciprofloxacin [From Cipro] AdvReac Itching Verified 08/30/23 11:03 ciprofloxacin HCl AdvReac Itching Verified 08/30/23 11:03 [From Cipro] levofloxacin [From Levaquin] AdvReac Itching Verified 08/30/23 11:03 Review of Systems ROS Statement: Those systems with pertinent positive or pertinent negative responses have been documented in the HPI. ROS Other: All systems not noted in ROS Statement are negative. 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 Hernia repair including inguinal and umbilical Past Anesthesia/Blood Transfusion Reactions: No Reported Reaction Past Psychological History: Depression Smoking Status: Current every day smoker Past Alcohol Use History: Rare Past Drug Use History: None Reported - Past Family History Father Family Medical History: Cancer Additional Family Medical History / Comment(s): Father is alive at age 70 with history of skin cancer, osteoarthritis and alcohol abuse. Mother Family Medical History: Cancer Additional Family Medical History / Comment(s): Mother is alive at age 67 with history of breast cancer, factor V, CVA. Brother(s) Additional Family Medical History / Comment(s): Patient has one brother with history of skin cancer, bipolar and alcohol abuse. Patient does not have any sisters. Patient had 3 children and one at 12 weeks of age. 2 daughters have no major medical problems. General Exam - General Exam Comments Initial Comments: PHYSICAL EXAM: General Impression: Alert and oriented x3, not in acute distress HEENT: Normocephalic atraumatic, extra-ocular movements intact, pupils equal and reactive to light bilaterally, mucous membranes moist. Cardiovascular: Heart regular rate and rhythm Chest: Able to complete full sentences, no retractions, no tachypnea Abdomen: Ecchymotic distended abdomen to the left lower abdomen. Musculoskeletal: Pulses present and equal in all extremities, no peripheral edema Motor: no focal deficits noted Neurological: CN II-XII grossly intact, no focal motor or sensory deficits noted Skin: Intact with no visualized rashes Psych: Normal affect and mood Limitations: no limitations Course Vital Signs 08/31/23 00:09 Temperature 98 F Pulse Rate 55 L Respiratory 18 Rate Blood Pressure 129/87 O2 Sat by Pulse 96 Oximetry Medical Decision Making - Medical Decision Making Was pt. sent in by a medical professional or institution (, PA, FRAME COVERER, urgent care, hospital, or fdc...) When possible be specific @ -No Did you speak to anyone other than the patient for history (EMS, parent, family, police, friend...)? What history was obtained from this source @ -No Did you review nursing and triage notes (agree or disagree)? Why? @ -I reviewed and agree with nursing and triage notes Were old charts reviewed (outside hosp., previous admission, EMS record, old EKG, old radiological studies, urgent care reports/EKG's, fdc records)? Report findings @ -No old charts were reviewed Differential Diagnosis (chest pain, altered mental status, abdominal pain women, abdominal pain men, vaginal bleeding, musculoskeletal, weakness, fever, dyspnea, syncope, headache, dizziness, GI bleed, back pain, seizure, CVA, palpatations, mental health)? @ -Differential Abdominal Pain Women: Appendicitis, Cholecystitis, diverticulosis, ischemic bowel, pancreatitis, hep atitis, UTI, gastroenteritis, AAA, incarcerated hernia, bowel obstruction, constipation, inflammatory bowel, hepatitis, peptic ulcer disease, splenic infarction, perforated viscus, vulvitis, ovarian torsion, PID, kidney stone, placenta abruption, this is not meant to be an all-inclusive list EKG interpreted by me (3pts min.). @ -None done X-rays interpreted by me (1pt min.). @ -None done CT interpreted by me (1pt min.). @ -CT of the abdomen pelvis shows large anterior abdominal wall subcutaneous hematoma U/S interpreted by me (1pt. min.). @ -None done What testing was considered but not performed or refused? (CT, X-rays, U/S, labs)? Why? @ -None What meds were considered but not given or refused? Why? @ -None Was smoking cessation discussed for >3mins.? @ -No Were there social determinants of health that impacted care today? How? (Homelessness, low income, unemployed, alcoholism, drug addiction, transportation, low edu. Level, literacy, decrease access to med. care, correction, rehab)? @ -No Was there de-escalation of care discussed even if they declined (Discuss DNR or withdrawal of care, Hospice)? DNR status @ -No What co-morbidities impacted this encounter? (DM, HTN, Smoking, COPD, CAD, Cancer, CVA, ARF, Chemo, Hep., AIDS, mental health diagnosis, sleep apnea, morbid obesity)? @ -None Was patient admitted / discharged? Hospital course, mention meds given and route, prescriptions, significant lab abnormalities, going to OR and other pertinent info. @ -53-year-old female presents to the ER for hematoma postoperatively. She had exploratory laparotomy today. Vital signs are stable. Laboratory evaluation is unremarkable. Hemoglobin stable. CT shows large abdominal wall hematoma. Case discussed with Dr. Schultz request that patient be discharged to follow-up in the office. Patient is agreeable to plan. Given some analgesics and discharged. Did you discuss the management of the patient with other professionals (professionals i.e. , PA, FRAME COVERER, lab, RT, psych nurse, sexual assault social worker, stem crusher, teacher, conservation enforcement officer, telephonic case manager)? Give summary @ -See above Was critical care preformed (if so, how long)? @ -No Undiagnosed new problem with uncertain prognosis? @ -No Drug Therapy requiring intensive monitoring for toxicity (Heparin, Nitro, Insulin, Cardizem)? @ -No Were any procedures done? @ -No Diagnosis/symptom? Acute, or Chronic, or Acute on Chronic? Uncomplicated (without systemic symptoms) or Complicated (systemic symptoms)? @ -Postoperative hematoma Side effects of treatment? @ -No Exacerbation, Progression, or Severe Exacerbation? @ -No Poses a threat to life or bodily function? How? (Chest pain, [place], [place], pneumonia, PE, COPD, DKA, ARF, appy, cholecystitis, CVA, Diverticulitis, Homicidal, Suicidal, threat to staff... and all critical care pts) @ -yes - Lab Data Result diagrams: 08/31/23 00:58 08/31/23 00:58 Lab Results 08/31/23 08/31/23 Range/Units 00:58 00:58 WBC 11.0 H (3.8-10.6) k/uL RBC 3.92 (3.80-5.40) m/uL Hgb 11.7 (11.4-16.0) gm/dL Hct 36.4 (34.0-46.0) % MCV 93.0 (80.0-100.0) fL MCH 29.7 (25.0-35.0) pg MCHC 32.0 (31.0-37.0) g/dL RDW 13.4 (11.5-15.5) % Plt Count 282 (150-450) k/uL MPV 8.6 Neutrophils % 77 % Lymphocytes % 16 % Monocytes % 5 % Eosinophils % 0 % Basophils % 0 % Neutrophils # 8.5 H (1.3-7.7) k/uL Lymphocytes # 1.8 (1.0-4.8) k/uL Monocytes # 0.6 (0-1.0) k/uL Eosinophils # 0.0 (0-0.7) k/uL Basophils # 0.0 (0-0.2) k/uL Sodium 133 L (137-145) mmol/L Potassium 3.7 (3.5-5.1) mmol/L Chloride 107 (98-107) mmol/L Carbon Dioxide 20 L (22-30) mmol/L Anion Gap 6 mmol/L BUN 10 (7-17) mg/dL Creatinine 0.59 (0.52-1.04) mg/dL Est GFR (CKD-EPI)AfAm >90 (>60 ml/min/1.73 sqM) Est GFR (CKD-EPI)NonAf >90 (>60 ml/min/1.73 sqM) Glucose 162 H (74-99) mg/dL Calcium 9.0 (8.4-10.2) mg/dL Total Bilirubin 0.4 (0.2-1.3) mg/dL AST 22 (14-36) U/L ALT 13 (4-34) U/L Alkaline Phosphatase 51 (38-126) U/L Total Protein 5.8 L (6.3-8.2) g/dL Albumin 3.7 (3.5-5.0) g/dL Disposition Clinical Impression: Postoperative hematoma Disposition: HOME SELF-CARE Condition: Fair Instructions (If sedation given, give patient instructions): Hematoma (ED) Is patient prescribed a controlled substance at d/c from ED?: No Referrals: Artemio Schultz MD [STAFF PHYSICIAN] - 1-2 days Time of Disposition: 02:08
[2023-08-31 01:12] LABS: Basophils % (A) 0 %; Eosinophils % (A) 0 %; HCT 36.4 % (34.0-46.0); HGB 11.7 gm/dL (11.4-16.0); Lymphocytes # (A) 1.8 k/uL (1.0-4.8); Lymphocytes % (A) 16 %; MCH 29.7 pg (25.0-35.0); Mean Platelet Volume 8.6; Monocytes # (A) 0.6 k/uL (0-1.0); Monocytes % (A) 5 %; Neutrophils # (A) 8.5 k/uL (1.3-7.7); Neutrophils % (A) 77 %; Platelet Count 282 k/uL (150-450); RBC 3.92 m/uL (3.80-5.40); RDW 13.4 % (11.5-15.5)
--- NOTE | 2023-08-31 01:26 | CT ---
EXAMINATION TYPE: CT abdomen pelvis wo con DATE OF EXAM: 08/31/2023 HISTORY: Patient comes in for distention of abdominal pain. Had laparoscopic surgery to have scar tis moira removed. CT DLP: 382.9 mGycm. Automated Exposure Control for Dose Reduction was Utilized. TECHNIQUE: CT scan of the abdomen and pelvis is performed without oral or IV contrast. COMPARISON: Prior CT July 21, 2023 FINDINGS: Within the limitations of a non-contrast study, the following observations are made. LUNG BASES: Mild bibasilar linear scarring and/or atelectasis. LIVER/GB: Cholecystectomy clips are redemonstrated. PANCREAS: No significant abnormality is seen. SPLEEN: No significant abnormality is seen. ADRENALS: No significant abnormality is seen. KIDNEYS: No renal stones or hydronephrosis is present bilaterally. BOWEL: Surgical changes to the right colon is present. No abnormal small or large bowel dilatation. GENITAL ORGANS: No gross abnormality seen. LYMPH NODES: No greater than 1cm abdominal or pelvic lymph nodes are appreciated. OSSEOUS STRUCTURES: No significant abnormality is seen. OTHER: There is large focal hematoma in the left anterior abdominal and pelvic wall measuring approxi mately 12 cm cranial caudal dimension coronal image 17 x roughly 10 cm transversely axial image 10 6 x 4.5 cm AP diameter. There is moderate surrounding ill-defined fluid. Local mass effect with posteri or bowing of the left-sided rectus muscles is present. There is free air in the nondependent upper ab domen IMPRESSION: Free air in the upper abdomen is nonspecific finding in patient with history of recent in tra-abdominal surgery favored postsurgical. There is a large anterior abdominal wall subcutaneous hem atoma noted with surrounding moderate ill-defined fluid or hemorrhage as detailed above.
[2023-08-31 01:35] LABS: ALT 13 U/L (4-34); AST 22 U/L (14-36); African American GFR (CKD) >90 (>60 ml/min/1.73 sqM); Albumin 3.7 g/dL (3.5-5.0); Alkaline Phosphatase 51 U/L (38-126); Anion Gap 6 mmol/L; Blood Urea Nitrogen 10 mg/dL (7-17); Carbon Dioxide 20 mmol/L (22-30); Chloride 107 mmol/L (98-107); Glucose 162 mg/dL (74-99); Non-African American GFR(CKD) >90 (>60 ml/min/1.73 sqM); Potassium 3.7 mmol/L (3.5-5.1); Sodium 133 mmol/L (137-145); Total Bilirubin 0.4 mg/dL (0.2-1.3); Total Protein 5.8 g/dL (6.3-8.2)
[2023-08-31] MEDS: HYDROmorphone 0.5 MG/0.5 ML SYRINGE IVP STA (02:24)
[2023-08-31 02:29] VITALS: BP 131/85; PULSE 94
== END 2023-08-31 02:35 | disposition home or self-care (01) ==
LOC: EC 00:04
DX: K91.870 Postprocedural hematoma of a digestive system organ or structure following a digestive system procedure (principal); F17.200 Nicotine dependence, unspecified, uncomplicated; Z91.041 Radiographic dye allergy status; Z88.5 Allergy status to narcotic agent; Z88.6 Allergy status to analgesic agent; Z88.1 Allergy status to other antibiotic agents
CPT/HCPCS: 36415; 80053; 85025; 74176; 99284; 96374; J1170

== ENCOUNTER → 2024-08-05 | Outpatient (CLI) | payer OTHER ==
--- NOTE | 2024-08-05 16:17 | MR ---
EXAMINATION TYPE: MR brain wo con DATE OF EXAM: 08/05/2024 3:43 PM COMPARISON: None. CLINICAL INDICATION: Female, 54 years old with history of Z86.73 PERSONNA HX TIA R53.1 WEAKNESS, righ t sided weakness, h/o CVA TECHNIQUE: Multiplanar, multiecho imaging on a 3.0 Pina magnet is performed through the brain. Stud y is performed within 24 hours of arrival to the hospital.Multiplanar, multiecho imaging on a 3.0 Kenna la magnet is performed through the knee. IV Contrast: mL (None, if empty) FINDINGS: The craniovertebral junction is normal. The pituitary is normal. Diffusion-weighted imaging is performed. No abnormal hyperintensity is present to suggest an acute i ntracranial infarct or acute ischemic change. There are a few scattered subcortical and deep white matter hyperintense lesions which are nonspecifi c but could be related to chronic white matter ischemic change. Differential diagnosis could include migraines headaches, vasculitis, Lyme disease, multiple sclerosis. Ventricles and sulci are appropriate for the patient age. Temporal lobes appear symmetrical IMPRESSION: 1. Nonspecific scattered small white matter changes likely on the basis of chronic white matter ische edgard change. [facility], , 08/05/2024 4:15 PM
== END | disposition home or self-care (01) ==
LOC: RADMRIMAIN 15:00
PROVIDERS: ATTEND Family Medicine
DX: R90.82 White matter disease, unspecified (principal); R53.1 Weakness; Z86.73 Personal history of transient ischemic attack (TIA), and cerebral infarction without residual deficits
CPT/HCPCS: 70551